=== PATIENT | female | born 1960 | race Caucasian/White ===

== ENCOUNTER 2021-03-25 10:11 | Outpatient (CLI) | payer OTHER, SELFPAY ==
--- NOTE | ~2021-03-25 | MM_ITS ---
EXAMINATION: MM screening lilian BI w silverio HISTORY: Screening mammogram TECHNIQUE: Craniocaudal and mediolateral oblique 3-D tomosynthesis images were obtained and synthetic 2-D images were generated. CAD analysis was submitted and interpreted. COMPARISON: 10/25/2018 diagnostic right digital mammogram and limited right breast ultrasound 03/22/2018 bilateral diagnostic mammogram and limited right breast ultrasound 08/2013 bilateral digital screening mammogram BREAST PARENCHYMAL COMPOSITION: There are scattered areas of fibroglandular density. FINDINGS: There is focal asymmetry in the central left breast; diagnostic left mammogram is recommend ed, with ultrasound if required. Otherwise there is no evidence of suspicious mass, calcification, or architectural distortion to sugg est malignancy in either breast. There has been no other suspicious interval change. IMPRESSION: 1. Focal asymmetry in central left breast 2. Diagnostic left mammogram is recommended, with ultrasound if required BI-RADS Category 0: Incomplete: Needs additional imaging evaluation. Reviewed, dictated and finalized at location A.
== END 2021-03-25 10:12 | disposition home or self-care (01) ==
PROVIDERS: PCP Family Medicine; Visit Provider Family Medicine
DX: Z12.31 Encounter for screening mammogram for malignant neoplasm of breast (principal)
CPT/HCPCS: 77063; 77067

== ENCOUNTER 2021-04-15 08:57 | Outpatient (CLI) | payer OTHER, SELFPAY ==
--- NOTE | ~2021-04-15 | DEXA_ITS ---
Bone Density Report Name: Vi Martinez Age: 60 Sex: Female Ethnicity: White Date of : 1960 Indication: postmenopausal; parental hip fracture; height loss; asthma or emphysema; Referring Provider: ATIF BATES Study: Bone densitometry was performed. Exam Date: April 15, 2021 Accession number: [id number] Bone Density: Region BMD T-score Z-score Classification AP Spine (L1-L4) 0.979 -0.6 0.8 Normal Femoral Neck (Left) 0.814 -0.3 1.0 Normal Total Hip (Left) 1.022 0.7 1.6 Normal Total Hip Bilateral Avg 0.986 0.4 1.3 Normal Femoral Neck (Right) 0.824 -0.2 1.1 Normal Total Hip (Right) 0.948 0.1 1.0 Normal World Health Organization criteria for BMD impression classify patients as: Normal (T-score at or above -1.0), Osteopenia (T-score between -1.0 and -2.5), or Osteoporosis (T-score at or below -2.5). 10-year Fracture Risk: FRAX not reported because: All T-scores for Spine Total, Hip Total, Femoral Neck at or above -1.0 Clinical Information Provided by Patient: Parent has had a hip fracture Has used the following medications: Calcium Has the following medical conditions: Asthma or Emphysema Patient maximum height was 64 Menopause Age: 46 Drinks caffeinated beverages Onset of menses at age 13 Number of children 2 Impression: The patient has normal bone mass. The patient has risk factors, including: parental hip fracture. Discussion: BONE DENSITY IS ABOVE THE MINIMUM DESIRABLE LEVEL AT ALL SKELETAL SITES TESTED. This patient?s bone mineral density is above the minimum desirable level (T-score -1.0 or better) at all sites measured. The patient should follow a healthful lifestyle (good nutrition with adequate calcium and vitamin D, and appropriate weight-bearing exercise). Follow-Up: Consider repeating this study in 5 years or sooner if there is some new clinical indication. Reported by: HEMANTH on 04/15/2021 9:17:00 AM. Reviewed, dictated and finalized at location APeri PHILLIPS
== END 2021-04-15 08:58 | disposition home or self-care (01) ==
LOC: ANHIMG 09:03
PROVIDERS: PCP Family Medicine; Visit Provider Family Medicine
DX: Z78.0 Asymptomatic menopausal state (principal)
CPT/HCPCS: 77080

== ENCOUNTER 2021-05-25 12:58 | Outpatient (CLI) | payer OTHER, SELFPAY ==
--- NOTE | ~2021-05-25 | MMUS_ITS ---
EXAMINATION: MM diagnostic lilian LT w silverio, US breast LT limited HISTORY: Follow-up left breast mass TECHNIQUE: Additional 3-D tomosynthesis images of the left breast were performed and synthetic 2-D im ages were generated. CAD analysis was submitted and interpreted. High resolution Limited left breast ultrasound was performed. COMPARISON: Comparison to multiple prior studies sequentially, with oldest reviewed study dated 07/16. BREAST PARENCHYMAL COMPOSITION: Breast composed of scattered areas of fibroglandular density. FINDINGS: MAMMOGRAPHIC FINDINGS: The left breast is stable without evidence for malignancy. Asymmetry mid lateral aspect of the left b reast is unchanged dating back to 2011. No new masses, calcifications or architectural distortion to suggest malignancy. ULTRASOUND: Limited left breast ultrasound: At 2:00 near the nipple there is a 5 mm cyst. No suspicious sonograph ic abnormalities to suggest malignancy. IMPRESSION: 1. No evidence for malignancy in the left breast. Benign findings. 2. Routine yearly screening mammogram and regular clinical breast examination are recommended. BI-RADS Category 2: Benign finding(s). Reviewed, dictated and finalized at location A. IMPRESSION: 1. No evidence for malignancy in the left breast. Benign findings. 2. Routine yearly screening mammogram and regular clinical breast examination a re recommended. BI-RADS Category 2: Benign finding(s).
== END 2021-05-25 12:59 | disposition home or self-care (01) ==
LOC: ANHIMG 12:59
PROVIDERS: PCP Family Medicine; Visit Provider Family Medicine
DX: R92.8 Other abnormal and inconclusive findings on diagnostic imaging of breast (principal)
CPT/HCPCS: 76642; 77061; 77065; G0279

== ENCOUNTER → 2021-06-08 17:19 | Outpatient (CLI) | payer OTHER, SELFPAY ==
--- NOTE | ~2021-06-08 | XR_ITS ---
XR knee LT min 4V DATE: 06/08/2021 17:34 INDICATION: Left knee pain TECHNIQUE: [place], lateral and standing AP and PA views COMPARISON: None FINDINGS: There is prominent loss of height of medial compartment, with mild periarticular spurring. There is mild periarticular spurring at the patellofemoral compartment. No fracture or dislocation, radiopaque intra-articular loose body or chondrocalcinosis is evident. Mi ld knee joint effusion is suggested. There is prominent enthesopathy of the anterior tibial tuberosity at the patellar tendon insertion. IMPRESSION: Osteoarthritis of medial and patellofemoral compartments Suggestion of mild joint effusion Reviewed, dictated and finalized at location A.
== END ==
PROVIDERS: PCP Physician Assistant Medical; Visit Provider Physician Assistant Medical
DX: M17.12 Unilateral primary osteoarthritis, left knee (principal)
CPT/HCPCS: 73564

== ENCOUNTER 2022-07-21 07:51 | Outpatient (CLI) | payer OTHER, SELFPAY ==
--- NOTE | ~2022-07-21 | MM_ITS ---
EXAMINATION: MM screening [facility] BI w silverio HISTORY: Screening mammogram TECHNIQUE: Craniocaudal and mediolateral oblique 3-D tomosynthesis images were obtained and synthetic 2-D images were generated. CAD analysis was submitted and interpreted. COMPARISON: 05/25/2021, 03/25/2021, 10/25/2018, 03/22/2018 BREAST PARENCHYMAL COMPOSITION: The breasts are heterogeneously dense, which may obscure small masses . FINDINGS: No suspicious mass, calcification, or architectural distortion are identified in either [place] ast to suggest malignancy. There has been no suspicious interval change. IMPRESSION: 1. No mammographic evidence of malignancy. 2. Recommend routine screening mammography in one year. BI-RADS Category 1: Negative Reviewed, dictated and finalized at location A.
== END 2022-07-21 07:52 | disposition home or self-care (01) ==
LOC: ANHIMG 07:53
PROVIDERS: PCP Family Medicine; Visit Provider Family Medicine
DX: Z12.31 Encounter for screening mammogram for malignant neoplasm of breast (principal)
CPT/HCPCS: 77063; 77067

== ENCOUNTER 2022-09-19 08:27 | Outpatient (CLI) | payer OTHER, SELFPAY ==
--- NOTE | ~2022-09-19 | XR_ITS ---
XR hip RT 2V w AP pelvis DATE: 09/19/2022 08:48 INDICATION: Right hip pain for 2 months TECHNIQUE: AP pelvis. AP and lateral views of right hip COMPARISON: None FINDINGS: No pelvic fracture or bone destruction. Normal alignment at the pubic symphysis and sacroil iac joints. No fracture or dislocation, avascular necrosis or bone destruction of the right hip. IMPRESSION: Negative Reviewed, dictated and finalized at location B. E SPECIALIST IMPRESSION: Negative
== END 2022-09-19 08:28 | disposition home or self-care (01) ==
PROVIDERS: PCP Family Medicine; Visit Provider Family Medicine
DX: M16.11 Unilateral primary osteoarthritis, right hip (principal); M54.16 Radiculopathy, lumbar region
CPT/HCPCS: 73502

== ENCOUNTER 2022-09-22 10:36 | Outpatient (CLI) | payer OTHER, SELFPAY ==
--- NOTE | 2022-09-26 16:23 | WPDHOLTEREM ---
Holter/Event Monitor Holter/Event Monitor Date of procedure: 09/22/22 Holter/Event Procedure: 48 Hr Holter Monitor Indications: Palpitations Conclusion: 1. 48 hour holter monitor on 09/22/22. 2. Predominant rhythm is sinus rhythm. HR range 50-120 bpm; average HR 64 bpm. 3. There are 603 premature supraventricular complexes and 2 supraventricular couplets. There are 2 episodes of atrial tachycardia, fastest at 154 bpm and longest lasting 10 beats. 4. There is 1 premature ventricular complex. No ventricular tachycardia. 5. No sinoatrial or atrioventricular blocks. No significant pauses greater than 2 seconds. 6. No symptoms available for correlation.
== END 2022-09-22 10:37 | disposition home or self-care (01) ==
PROVIDERS: PCP Family Medicine; Visit Provider Family Medicine
DX: R00.2 Palpitations (principal)
CPT/HCPCS: 93225; 93226

== ENCOUNTER → 2022-10-12 09:55 | Outpatient (CLI) | payer OTHER, SELFPAY ==
--- NOTE | ~2022-10-12 | XR_ITS ---
EXAMINATION:XR cervical spine min 6V DATE: 10/12/2022 10:25 INDICATION: Neck pain TECHNIQUE: AP, lateral in neutral, extension, and flexion, lateral swimmers and odontoid views of the cervical spine are provided. COMPARISON: None FINDINGS: There are 2 mm of anterolisthesis of C3 on C4, C4 on C5, and C5 on C6. There is no hypermob ility with flexion or extension. The vertebral body heights are maintained. The odontoid is intact. N o fracture is identified. The vertebral body heights are maintained. There is mild loss of interverte bral disc space height from C4-5 through C7-T1. There is multilevel mild facet and uncovertebral join t osteoarthritis. Prevertebral soft tissues are normal. A calcification right submandibular region is likely within a salivary gland. IMPRESSION: 1. Moderate cervical spondylosis without acute findings. Reviewed, dictated and finalized at location L. ER HELPER
== END ==
PROVIDERS: PCP Family Medicine; Visit Provider Family Medicine
DX: M47.812 Spondylosis without myelopathy or radiculopathy, cervical region (principal); M25.511 Pain in right shoulder; M25.512 Pain in left shoulder
CPT/HCPCS: 72052

== ENCOUNTER → 2022-10-18 09:36 | Outpatient (CLI) | payer OTHER, SELFPAY ==
--- NOTE | ~2022-10-18 | MR_ITS ---
MRI of the cervical spine Clinical History: Disc herniation Technique: Axial T2-weighted and gradient images, and sagittal T1-weighted, T2-weighted, and STIR janelle ges were acquired. Findings: There is no fracture or subluxation the cervical spine. Vertebral bodies maintain normal he ight and alignment. No bone marrow signal abnormality seen. No significant disc bulge or herniation seen at any cervical level. No spinal canal stenosis, cord co mpression, or neural foraminal narrowing seen in the cervical spine. No epidural mass or collection. No abnormal signal in the spinal cord. Paravertebral soft tissues are unremarkable. Impression: Unremarkable exam. Reviewed, dictated and finalized at location . LE CHECKER Impression: Unremarkable exam.
== END ==
PROVIDERS: PCP Family Medicine; Visit Provider Family Medicine
DX: M50.20 Other cervical disc displacement, unspecified cervical region (principal)
CPT/HCPCS: 72141

== ENCOUNTER 2023-05-18 08:15 | Outpatient (CLI) | payer OTHER, SELFPAY ==
[2023-05-18 14:33] LABS: Alanine Aminotransferase 22 U/L (6-35); Alkaline Phosphatase 86 U/L (38-126); Anion Gap 6 mmol/L (8-16); Aspartate Amino Transferase 44 U/L (14-36); Bilirubin,Total 0.8 mg/dL (0.2-1.3); Blood Urea Nitrogen 21 mg/dL (7-17); Calcium 9.1 mg/dL (8.4-10.2); Carbon Dioxide 29 mmol/L (22-30); Chloride 104 mmol/L (98-107); Cholesterol 186 mg/dL (0-200); Estimated Glomerular Filt Rate 56; Glucose 81 mg/dL (65-110); HDL Direct 61 mg/dL; Sodium 139 mmol/L (137-145); Triglycerides 133 mg/dL (<150)
[2023-05-18 14:44] LABS: LDL Cholesterol Direct 80 mg/dL
[2023-05-18 15:00] LABS: MALB Creatinine Ratio 26.8 mg/g (0-30); Microalbumin Urine Random 41.5 mg/L (0-16.7)
[2023-05-18 15:57] LABS: Hemoglobin A1C 6.2 % (<5.7)
== END 2023-05-18 08:16 | disposition home or self-care (01) ==
LOC: ANHGOSHLAB 08:16
PROVIDERS: PCP Family Medicine; Visit Provider Family Medicine
DX: E03.9 Hypothyroidism, unspecified (principal); E11.9 Type 2 diabetes mellitus without complications; M35.3 Polymyalgia rheumatica
CPT/HCPCS: 36415; 80053; 80061; 82043; 83036; 84443

== ENCOUNTER 2023-11-29 08:24 | Outpatient (CLI) | payer OTHER, SELFPAY ==
[2023-11-29 19:40] LABS: Alanine Aminotransferase 22 U/L (6-35); Albumin Level 3.9 g/dL (3.5-5.1); Alkaline Phosphatase 90 U/L (38-126); Anion Gap 4 mmol/L (8-16); Aspartate Amino Transferase 46 U/L (14-36); Bilirubin,Total 0.9 mg/dL (0.2-1.3); Blood Urea Nitrogen 25 mg/dL (7-17); Calcium 9.6 mg/dL (8.4-10.2); Carbon Dioxide 31 mmol/L (22-30); Chloride 104 mmol/L (98-107); Cholesterol 187 mg/dL (0-200); Estimated Glomerular Filt Rate > 60; Glucose 93 mg/dL (65-110); HDL Direct 53 mg/dL; LDL Cholesterol Direct 89 mg/dL; Potassium 4.4 mmol/L (3.4-5.0); Sodium 139 mmol/L (137-145); Triglycerides 171 mg/dL (<150)
[2023-11-29 21:22] LABS: Hemoglobin A1C 6.2 % (<5.7)
== END 2023-11-29 08:25 | disposition home or self-care (01) ==
LOC: ANHGOSHLAB 08:25
PROVIDERS: PCP Family Medicine; Visit Provider Family Medicine
DX: E78.5 Hyperlipidemia, unspecified (principal); M35.3 Polymyalgia rheumatica; R73.03 Prediabetes
CPT/HCPCS: 36415; 80053; 80061; 83036; 84443

== ENCOUNTER 2024-05-23 09:02 | Outpatient (CLI) | payer OTHER, SELFPAY ==
--- NOTE | ~2024-05-23 | MM_ITS ---
EXAMINATION: MM screening lilian BI w silverio HISTORY: Screening TECHNIQUE: Craniocaudal and mediolateral oblique 3-D tomosynthesis images were obtained and synthetic 2-D images were generated. CAD analysis was submitted and interpreted. COMPARISON: Comparison to multiple prior studies sequentially, with oldest reviewed study dated 05/2018. BREAST PARENCHYMAL COMPOSITION: Not dense: There are scattered areas of fibroglandular density. FINDINGS: There is no evidence of suspicious mass, calcification, or architectural distortion to sugg est malignancy in either breast. There has been no suspicious interval change. IMPRESSION: 1. No mammographic evidence of malignancy. 2. Recommend routine screening mammography in one year. BI-RADS Category 1: Negative Reviewed, dictated and finalized at location B.
== END 2024-05-23 09:03 | disposition home or self-care (01) ==
LOC: ANHIMG 09:05
PROVIDERS: PCP Family Medicine; Visit Provider Family Medicine
DX: Z12.31 Encounter for screening mammogram for malignant neoplasm of breast (principal)
CPT/HCPCS: 77063; 77067

== ENCOUNTER 2024-06-05 08:20 | Outpatient (CLI) | payer OTHER, SELFPAY ==
[2024-06-05 14:28] LABS: Hemoglobin A1C 6.2 % (<5.7)
[2024-06-05 14:32] LABS: Alanine Aminotransferase 18 U/L (6-35); Albumin Level 4.1 g/dL (3.5-5.1); Alkaline Phosphatase 99 U/L (38-126); Anion Gap 7 mmol/L (4-12); Aspartate Amino Transferase 83 U/L (14-36); Bilirubin,Total 0.7 mg/dL (0.2-1.3); Blood Urea Nitrogen 22 mg/dL (7-17); Calcium 9.1 mg/dL (8.4-10.2); Carbon Dioxide 28 mmol/L (22-30); Chloride 103 mmol/L (98-107); Estimated Glomerular Filt Rate > 60; Glucose 89 mg/dL (65-110); Potassium 4.2 mmol/L (3.4-5.0); Sodium 138 mmol/L (137-145)
== END 2024-06-05 08:21 | disposition home or self-care (01) ==
LOC: ANHGOSHLAB 08:21
PROVIDERS: PCP Family Medicine; Visit Provider Family Medicine
DX: E78.5 Hyperlipidemia, unspecified (principal); E07.9 Disorder of thyroid, unspecified; M35.3 Polymyalgia rheumatica; R73.03 Prediabetes
CPT/HCPCS: 36415; 80053; 83036; 84443

== ENCOUNTER 2024-06-12 09:33 | Outpatient (CLI) | payer OTHER, SELFPAY ==
[2024-06-12 13:06] LABS: Alanine Aminotransferase 16 U/L (6-35); Albumin Level 4.2 g/dL (3.5-5.1); Alkaline Phosphatase 98 U/L (38-126); Aspartate Amino Transferase 35 U/L (14-36); Bilirubin,Total 0.6 mg/dL (0.2-1.3)
[2024-06-12 13:15] LABS: Hepatitis B Surface Antigen Negative (Negative)
[2024-06-12 13:21] LABS: HAV RESULT Negative (Negative); Hepatitis B Core IgM Result Negative (Negative)
[2024-06-12 13:33] LABS: Hepatitis C Virus Antibody Negative (Negative)
== END 2024-06-12 09:34 | disposition home or self-care (01) ==
LOC: ANHGOSHLAB 09:34
PROVIDERS: PCP Family Medicine; Visit Provider Family Medicine
DX: R74.01 Elevation of levels of liver transaminase levels (principal)
CPT/HCPCS: 36415; 80074; 80076

== ENCOUNTER 2024-07-16 12:06 | Emergency (ER) | payer OTHER, SELFPAY ==
--- NOTE | ~2024-07-16 | XR_ITS ---
Clinical Indication: Shortness of breath PA and lateral views of the chest: Comparison: 12/18/2007 Findings: The lungs are clear, without evidence of focal consolidation or pleural effusion. Cardiome diastinal silhouette is within normal limits. Bones and soft tissues are unremarkable. Impression: Normal chest. Reviewed, dictated and finalized at location . Impression: Normal chest.
[2024-07-16 12:17] VITALS: BP 124/67; PULSE 73; RESP 16; TEMP 36.8; O2SAT 97
--- NOTE | 2024-07-16 12:28 | ED.URI ---
HPI - URI/Sore Throat General Chief Complaint: Upper Respiratory Infection Stated Complaint: SOB Time Seen by Provider: 07/16/24 12:22 Source: patient and RN notes reviewed Mode of arrival: ambulatory Limitations: no limitations History of Present Illness HPI Narrative: Patient presents today stating she had the flu 2 weeks ago and that most for symptoms had improved except for a lingering cough and shortness of breath. States shortness of breath has worsened today. She also developed some fatigue when she woke up this morning. History of asthma. States she uses her Wixela inhaler p.r.n. and has been using it more frequently since she has been ill. She has also been using Mucinex with some relief. She does not have a rescue inhaler. Related Data Allergies Allergy/AdvReac Type Severity Reaction Status Date / Time Penicillins Allergy Intermediate hives Verified 07/16/24 12:21 Sulfa (Sulfonamide Allergy Intermediate hives Verified 07/16/24 12:21 Antibiotics) Review of Systems Review of Systems: CONSTITUTIONAL: Denies body aches, fever, chills, or sweats.+ fatigue EYES: Denies visual changes, redness, or discharge. ENT: Denies rhinorrhea, congestion, sore throat, or otalgia. CARDIOVASCULAR: Denies chest pain, palpitations, or edema. RESPIRATORY: + cough, shortness of breath GASTROINTESTINAL: Denies abdominal pain, nausea, vomiting, or diarrhea. GENITOURINARY: Denies dysuria or hematuria. SKIN: Denies rash, itching, or wounds. MUSCULOSKELETAL: Denies back pain, joint pain, or myalgia. NEUROLOGIC: Denies headache, numbness, tingling, or weakness. PSYCH: Denies depression or anxiety. [facility] Past Medical History Medical History (Updated 07/16/24 @ 13:01 by Caterina Marc, KOLE, BC) Arthritis of right hip COVID-19 History of chicken pox History of measles History of mumps Obesity (BMI 30.0-34.9) Subjective tinnitus of both ears Tinnitus Unspecified asthma, uncomplicated Surgical History Surgical History History of tonsillectomy (~1970) Family History Family History Father , age 76 Diabetes mellitus Carcinoma of colon Heart disease Cancer Hypertension Thyroid disorder Mother No problems noted. Sibling Kidney disease Sibling No problems noted. Sibling Heart disease Grandparent , age 82 Arthritis Alcoholism Family history of cardiovascular disease Grandparent , age 68 Leukemia Grandparent , age 91 No problems noted. Grandparent , age 71 Heart disease Cerebrovascular accident Cancer Daughter Gestational diabetes Son No problems noted. Other Depression Other Malignant neoplasm of prostate Social History Social History Smoking status: Never smoker Alcohol intake: former Substance use type: does not use Lack of Transportation: No Lack of Food: Never True Current Housing: I Have Housing Concerned About Future Housing: No Difficulty Paying Gas/Electric Bills: No Difficulty Paying for Meds: No Currently Unemployed: No Education: Bachelor's Degree Difficulty w/ Childcare or Family Care: No Living arrangements: with family Additional occupation/education comments: [employer] Comments At time of signature, I have reviewed and agree with nursing past medical, surgical, social and family history unless otherwise noted. Please see nursing chart for further information. There is no relevant family history pertinent to the presenting complaint Exam Narrative: GENERAL: Well-appearing, well-nourished, and in no acute distress. HEAD: Normocephalic, atraumatic. EYES: EOMI. No redness or drainage. Conjunctivae normal. ENT: Mucous membranes pink and moist. Nares cl
== END 2024-07-16 13:10 | disposition home or self-care (01) ==
PROVIDERS: Emergency Provider Nurse Practitioner; PCP Family Medicine
DX: J22 Unspecified acute lower respiratory infection (principal); M16.11 Unilateral primary osteoarthritis, right hip; E66.9 Obesity, unspecified; Z68.33 Body mass index [BMI] 33.0-33.9, adult; Z86.16 Personal history of COVID-19
CPT/HCPCS: 71046; 99213; G0463

== ENCOUNTER 2025-01-18 18:29 | Emergency (ER) | payer OTHER, SELFPAY ==
[2025-01-18] VITALS (16 sets, daily range): BP systolic 119–126; BP diastolic 46–70; PULSE 56–66; RESP 12–21; TEMP 36.7; O2SAT 96–98
--- NOTE | ~2025-01-18 | CT_ITS ---
Clinical Indication: Chest pain CT Scan of the Chest with Contrast: Technique: Contiguous sections were acquired throughout the chest after intravenous administration of 100 cc of Omnipaque 350. Dose reduction technique was used on this scan by utilizing automated expos ure control and iterative reconstruction technique. The dose-length product (DLP) was 442.33 mGy-cm. Findings: There is no evidence of any significant mediastinal, hilar or axillary lymphadenopathy. There is no f illing defect in the pulmonary arterial tree to suggest pulmonary embolus. There is no evidence of ao rtic dissection or aneurysm. There is no evidence of pleural or pericardial effusion. There mild bibasilar dependent atelectatic changes. 7 mm left basilar pulmonary nodule present (axial image 79). Images through the upper abdomen reveal no abnormalities. Impression: No evidence of pulmonary embolus, aortic dissection, or aortic aneurysm. 7 mm left basilar pulmonary nodule. According to Fleischner Society criteria, for a low-risk patient, follow-up CT scan in 6-12 months recommended, then consider additional 18-[address] For a high-ri sk patient, follow-up CT scans at both 6-12 months and 18-24 months are recommended. Reviewed, dictated and finalized at [facility]. Impression: No evidence of pulmonary embolus, aortic dissection, or aortic aneurysm. 7 mm left basilar pulmonary nodule. According to Fleischner Society criteria, f or a low-risk patient, follow-up CT scan in 6-12 months recommended, then consi good additional 18-[address] For a high-risk patient, follow-up CT scans at [facility] 6-12 months and 18-24 months are recommended.
--- NOTE | ~2025-01-18 | XR_ITS ---
CHEST RADIOGRAPH, PA AND LATERAL CLINICAL HISTORY: cp . COMPARISON: 07/16/2024 TECHNIQUE: PA and lateral views of the chest. FINDINGS The cardiomediastinal silhouette is unremarkable. The lungs are clear. Visualized osseous structures and soft tissues are unremarkable. IMPRESSION: No focal infiltrate or effusion. Reviewed, dictated and finalized at location A.
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
--- OUTSIDE RECORDS SUMMARY | 2025-01-18 18:32 | XMS_ITS | Clinical Summary ---
Author Organization [facility] Address [address] [place] [address] Phone Care Team Providers Care Rewinder Operator Name Role Phone Unavailable Unavailable Unavailable Reason for Visit and Chief Complaint [Patient Encounter] Problems Includes: Problems addressed during this encounter and other active Problems All Visits Onset Date Resolved Date Provider Condition S tatus Generalized Anxiety Disorder 03/30/2014 Active Last Documented On 3 5:47PM ; [facility] Major Depression, Recurrent 03/30/2014 Active Last Documented On 3 5:47PM ; [facility] Adhd, 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 Last Documented On 3 5:47PM ; [facility] Persistent Insomnia 03/18/2014 Activ e Last Documented On 3 5:47PM ; [facility] Plan of Treatment No Plan of Treatment Recorded Assessments Includes: Assessments from this encounter No Assessments Recorded Medical Equipment - Implanted Devices Includes: Current Devices No Medical Equipment Recorded Medications Includes: Medications discussed during this encounter and other current Medications Discontinued / Stopped on this date SAIRA PRABHAKAR MD on 07/26/2015 Ambien 10 MG OR TABS Provider: SAIRA PRABHAKAR MD Diagnosis: Insomnia, unspec ified Last Documented On 02/10/2023 5:37PM By Anne Prabhakar MD ; [facility] Strattera 40 MG OR CAPS Provider: MC PRABHAKAR MD Diagnosis: ATTN DEFIC NONHY PERACT Last Documented On 02/10/2023 5:37PM By Anne Prabhakar MD ; [facility] traZODone HCl 50 MG OR TABS Provider: SAIRA PRABHAKAR MD Diagnosis: PERSISTENT INSOM JOCELYN Last Documented On 02/10/2023 5:37PM By Anne Prabhakar MD ; [facility] Current Medications (continue as prescribed) Rexulti 1 MG OR TABS 08/28/2016 Provider: SAIRA PRABHAKAR MD Diagnosis: Major depressive disorder, recurrent, unspecified One tablet daily -- has 30 d ay free voucher given 08/28/16 Last Documented On 02/10/2023 5:37PM By Anne Prabhakar MD ; [facility] Rexulti 1 MG OR TABS 08/28/2016 Provider: SAIRA PRABHAKAR MD Diagnosis: Major depressive disorder, recurrent, unspecified One tablet daily -- given 2 months samples on 08/28/16 Last Documented On 02/10/2023 5:37PM By Anne Prabhakar MD ; [facility] FLUoxetine HCl 40 MG OR CAPS 08/28/2016 Provider: SAIRA PRABHAKAR MD Diagnosis: Major depressive disorder, recurrent, unspecified 1 capsule daily Last Documented On 02/10/2023 5:37PM By Anne Prabhakar MD ; [facility] busPIRone HCl 10 MG OR TABS 08/28/2016 Provider: SAIRA PRABHAKAR MD Diagnosis: Generalized anxi ety disorder One tablet twice a day Last Documented On 02/10/2023 5:37PM By Anne Prabhakar MD ; [facility] Rexulti 1 MG OR TABS 07/03/2016 Provider: SAIRA PRABHAKAR MD Diagnosis: Major depressive disorder, recurrent, unspecified One tablet daily Last Documented On 02/10/2023 5:37PM By Anne Prabhakar MD ; [facility] Levothyroxine Sodium 75 MCG OR TABS 03/30/2014 Provi good: Diagnosis: one tablet daily Last Documented On 02/10/2023 5:37PM By LUIZ RUDD ; [facility] Medications Administered Includes: Administered Medications from this encounter No Administered Medications Recorded Vital Signs Includes: Vital Signs from this encounter Vital Name 08/09/2015 08:57A Blood Pressure Sitting (mmHg) 128/78 BP Cuff Size Regular Pulse Rate-Sitting (bpm) 80 Pulse Rhythm Regular Height (in) 63 Weight (lb) 190 Body Mass Index (kg/m2) 33.7 Body Surface Area (m2) 1.9 Last Documented: On 02/10/2023 5:54PM ; [facility] Results Includes: Results discussed during this encounter No Results Recorded For Specified Dates History of Present Illness Includes: History of Present Illness from this encounter No History of Present Illness Recorded Social History No Social History Recorded - Smoking Status Unknown Medical History Includes: Medical History addressed during this encounter No Medical History Recorded Family History Includes: Family History addressed during this encounter No Family History Recorded Review of Systems Includes: Review of Systems from this encounter No Review of Systems Recorded Mental Status Includes: Mental Status from this encounter No Mental Status Recorded Functional Status Includes: Functional Status from this encounter No Functional Status Recorded Physical Exam Includes: Physical Exam from this encounter No Physical Exam Recorded Allergies Includes: Active Allergies Substance Type Reaction Onset Date Resolved Date Statu s Zolpidem Tartrate Allergy Nausea, Vomiti ng, Diarrhea / Diarrheal disorder, flu sx and nightmares 08/09/2015 Active Last Documented On 02/10/2023 5:39PM ; [facility] Note: Imported from external source. traZODone HCl Allergy chest pounding a nd severe dizziness 08/09/2015 Active Last Documented On 02/10/2023 5:39PM ; [facility] Note: Imported from external source. Sulfa Antibiotics Allergy 03/30/2014 A ctive Last Documented On 02/10/2023 5:39PM ; [facility] Note: Imported from external source. Strattera Allergy pounding chest 08/09/2015 Acti ve Last Documented On 02/10/2023 5:39PM ; [facility] Note: Imported from external source. Penicillin V Potassium Allergy 03/30/2014 Active Last Documented On 02/10/2023 5:39PM ; [facility] Note: Imported from external source. Focalin Allergy fast heart rate 05/31/2015 Act arnaud Last Documented On 02/10/2023 5:39PM ; [facility] Note: Imported from external source. Encounters Encounter Provider Location Date Check-In Time Check-Out Time Diagnosis [Patient Encounter] 08/09/2015 12:00AM 11:59PM Clinical Notes Includes: Clinical Notes from this encounter No Clinical Notes Recorded
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
--- OUTSIDE RECORDS SUMMARY | 2025-01-18 18:32 | XMS_ITS | Clinical Summary ---
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 Name Role Phone Unavailable Unavailable Unavailable Reason for Visit and Chief Complaint [Patient Encounter] Problems Includes: Problems addressed during this encounter and other active Problems All Visits Onset Date Resolved Date Provider Condition S tatus Generalized Anxiety Disorder 03/30/2014 Active Last Documented On 3 5:47PM ; [facility] Major Depression, Recurrent 03/30/2014 Active Last Documented On 3 5:47PM ; [facility] Adhd, 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 Last Documented On 3 5:47PM ; [facility] Persistent Insomnia 03/18/2014 Activ e Last Documented On 3 5:47PM ; [facility] Plan of Treatment No Plan of Treatment Recorded Assessments Includes: Assessments from this encounter No Assessments Recorded Medical Equipment - Implanted Devices Includes: Current Devices No Medical Equipment Recorded Medications Includes: Medications discussed during this encounter and other current Medications Discontinued / Stopped on this date SAIRA PRABHAKAR MD on 08/09/2015 Silenor 3 MG OR TABS Provider: SAIRA PRABHAKAR MD Diagnosis: Insomnia, unspec ified Last Documented On 02/10/2023 5:37PM By Anne Prabhakar MD ; [facility] Silenor 6 MG OR TABS Provider: SAIRA PRABHAKAR MD Diagnosis: Insomnia, unspec ified Last Documented On 02/10/2023 5:37PM By Anne Prabhaakr MD ; [facility] Current Medications (continue as prescribed) Rexulti 1 MG OR TABS 08/28/2016 Provider: SAIRA PRABHAKAR MD Diagnosis: Major depressive disorder, recurrent, unspecified One tablet daily -- has 30 d ay free voucher given 08/28/16 Last Documented On 02/10/2023 5:37PM By Anne Prabhakar MD ; [facility] Rexulti 1 MG OR TABS 08/28/2016 Provider: SAIRA PRABHAKAR MD Diagnosis: Major depressive disorder, recurrent, unspecified One tablet daily -- given 2 months samples on 08/28/16 Last Documented On 02/10/2023 5:37PM By Anne Prabhakar MD ; [facility] FLUoxetine HCl 40 MG OR CAPS 08/28/2016 Provider: SAIRA PRABHAKAR MD Diagnosis: Major depressive disorder, recurrent, unspecified 1 capsule daily Last Documented On 02/10/2023 5:37PM By Anne Prabhakar MD ; [facility] busPIRone HCl 10 MG OR TABS 08/28/2016 Provider: SAIRA PRABHAKAR MD Diagnosis: Generalized anxi ety disorder One tablet twice a day Last Documented On 02/10/2023 5:37PM By Anne Prabhakar MD ; [facility] Rexulti 1 MG OR TABS 07/03/2016 Provider: SAIRA PRABHAKAR MD Diagnosis: Major depressive disorder, recurrent, unspecified One tablet daily Last Documented On 02/10/2023 5:37PM By Anne Prabhakar MD ; [facility] Levothyroxine Sodium 75 MCG OR TABS 03/30/2014 Provi good: Diagnosis: one tablet daily Last Documented On 02/10/2023 5:37PM By LUIZ RUDD ; [facility] Medications Administered Includes: Administered Medications from this encounter No Administered Medications Recorded Vital Signs Includes: Vital Signs from this encounter Vital Name 10/04/2015 03:34P Blood Pressure Sitting (mmHg) 110/74 BP Cuff Size Large Pulse Rate-Sitting (bpm) 88 Pulse Rhythm Regular Height (in) 63 Weight (lb) 197 Body Mass Index (kg/m2) 34.9 Body Surface Area (m2) 1.9 Last Documented: On 02/10/2023 5:54PM ; [facility] Results Includes: Results discussed during this encounter [...] Last Documented On 02/10/2023 5:39PM ; [facility] Note: Imported from external source. traZODone HCl Allergy chest pounding a nd severe dizziness 08/09/2015 Active Last Documented On 02/10/2023 5:39PM ; [facility] Note: Imported from external source. Sulfa Antibiotics Allergy 03/30/2014 A ctive Last Documented On 02/10/2023 5:39PM ; [facility] Note: Imported from external source. Strattera Allergy pounding chest 08/09/2015 Acti ve Last Documented On 02/10/2023 5:39PM ; [facility] Note: Imported from external source. Penicillin V Potassium Allergy 03/30/2014 Active Last Documented On 02/10/2023 5:39PM ; [facility] Note: Imported from external source. Focalin Allergy fast heart rate 05/31/2015 Act arnaud Last Documented On 02/10/2023 5:39PM ; [facility] Note: Imported from external source. Encounters Encounter Provider Location Date Check-In Time Check-Out Time Diagnosis [Patient Encounter] 10/04/2015 12:00AM 11:59PM Clinical Notes Includes: Clinical Notes from this encounter No Clinical Notes Recorded
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
--- OUTSIDE RECORDS SUMMARY | 2025-01-18 18:32 | XMS_ITS | Clinical Summary ---
Author Organization [facility] Address [address] [place] [address] Phone Care Team Providers Care Manufacturing Job Titles Name Role Phone Unavailable Unavailable Unavailable Reason for Visit and Chief Complaint [Patient Encounter] Problems Includes: Problems addressed during this encounter and other active Problems All Visits Onset Date Resolved Date Provider Condition S tatus Generalized Anxiety Disorder 03/30/2014 Active Last Documented On 3 5:47PM ; [facility] Major Depression, Recurrent 03/30/2014 Active Last Documented On 3 5:47PM ; [facility] Adhd, 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 Last Documented On 3 5:47PM ; [facility] Persistent Insomnia 03/18/2014 Activ e Last Documented On 3 5:47PM ; [facility] Plan of Treatment No Plan of Treatment Recorded Assessments Includes: Assessments from this encounter No Assessments Recorded Medical Equipment - Implanted Devices Includes: Current Devices No Medical Equipment Recorded Medications Includes: Medications discussed during this encounter and other current Medications Discontinued / Stopped on this date SAIRA PRABHAKAR MD on 10/04/2015 Vyvanse 20 MG OR CAPS Provider: TATIANA PRABHAKAR MD Diagnosis: Attn-defct hyper activity disorder, predom inattentive type Last Documented On 02/10/2023 5:37PM By Anne Prabhakar MD ; [facility] Current Medications (continue as prescribed) Rexulti 1 MG OR TABS 08/28/2016 Provider: SAIRA PRABHAKAR MD Diagnosis: Major depressive disorder, recurrent, unspecified One tablet daily -- has 30 d ay free voucher given 08/28/16 Last Documented On 02/10/2023 5:37PM By Anne Prabhakar MD ; [facility] Rexulti 1 MG OR TABS 08/28/2016 Provider: SAIRA PRABHAKAR MD Diagnosis: Major depressive disorder, recurrent, unspecified One tablet daily -- given 2 months samples on 08/28/16 Last Documented On 02/10/2023 5:37PM By Anne Prabhakar MD ; [facility] FLUoxetine HCl 40 MG OR CAPS 08/28/2016 Provider: SAIRA PRABHAKAR MD Diagnosis: Major depressive disorder, recurrent, unspecified 1 capsule daily Last Documented On 02/10/2023 5:37PM By Anne Prabhakar MD ; [facility] busPIRone HCl 10 MG OR TABS 08/28/2016 Provider: SAIRA PRABHAKAR MD Diagnosis: Generalized anxi ety disorder One tablet twice a day Last Documented On 02/10/2023 5:37PM By Anne Prabhakar MD ; [facility] Rexulti 1 MG OR TABS 07/03/2016 Provider: SAIRA PRABHAKAR MD Diagnosis: Major depressive disorder, recurrent, unspecified One tablet daily Last Documented On 02/10/2023 5:37PM By Anne Prabhakar MD ; [facility] Levothyroxine Sodium 75 MCG OR TABS 03/30/2014 Provi good: Diagnosis: one tablet daily Last Documented On 02/10/2023 5:37PM By LUIZ RUDD ; [facility] Medications Administered Includes: Administered Medications from this encounter No Administered Medications Recorded Vital Signs Includes: Vital Signs from this encounter Vital Name 01/03/2016 03:03P Blood Pressure Sitting (mmHg) 110/72 BP Cuff Size Regular Pulse Rate-Sitting (bpm) 80 Pulse Rhythm Regular Height (in) 63 Weight (lb) 196 Body Mass Index (kg/m2) 34.7 Body Surface Area (m2) 1.9 Last Documented: On 02/10/2023 5:54PM ; [facility] Results Includes: Results discussed during this [...] Active Last Documented On 02/10/2023 5:39PM ; [facility] Note: Imported from external source. traZODone HCl Allergy chest pounding a nd severe dizziness 08/09/2015 Active Last Documented On 02/10/2023 5:39PM ; [facility] Note: Imported from external source. Sulfa Antibiotics Allergy 03/30/2014 A ctive Last Documented On 02/10/2023 5:39PM ; [facility] Note: Imported from external source. Strattera Allergy pounding chest 08/09/2015 Acti ve Last Documented On 02/10/2023 5:39PM ; [facility] Note: Imported from external source. Penicillin V Potassium Allergy 03/30/2014 Active Last Documented On 02/10/2023 5:39PM ; [facility] Note: Imported from external source. Focalin Allergy fast heart rate 05/31/2015 Act arnaud Last Documented On 02/10/2023 5:39PM ; [facility] Note: Imported from external source. Encounters Encounter Provider Location Date Check-In Time Check-Out Time Diagnosis [Patient Encounter] 01/03/2016 12:00AM 11:59PM Clinical Notes Includes: Clinical Notes from this encounter No Clinical Notes Recorded
--- OUTSIDE RECORDS SUMMARY | 2025-01-18 18:32 | XMS_ITS ---
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 I reviewed the risks, benefits and side effects of patient's medications Last Documented On 6 10:37AM ; [facility] Discussed calming techniques such as breathing exercises/meditation and other relaxation techniques Last Documented On 6 10:37AM ; [facility] Counseling for nutrition/guilherme ght management provided Last Documented On 6 1:41PM ; [facility] Patient education about medi cation --- I educated patient on medication(s) and diagnosis. I reviewed the risks, benefits and side effects of patient's medications Last Documented On 6 1:26PM ; [facility] Discussed calming techniques such as breathing exercises/meditation and other relaxation techniques Last Documented On 6 1:26PM ; [facility] Counseling for nutrition/guilherme ght management provided -- pt will start riding her indoor bike 10 min a day at least Last Documented On 6 2:13PM ; [facility] Patient education about medi cation --- I educated patient on medication(s) and diagnosis. I reviewed the risks, benefits and side effects of patient's medications Last Documented On 6 2:51PM ; [facility] Discussed calming techniques such as breathing exercises/meditation and other relaxation techniques Last Documented On 6 2:51PM ; [facility] Counseling for nutrition/guilherme ght management provided Last Documented On 6 5:17PM ; [facility] Patient education about medi cation --- I educated patient on medication(s) and diagnosis. I reviewed the risks, benefits and side effects of patient's medications Last Documented On 5 3:23PM ; [facility] Discussed calming techniques such as breathing exercises/meditation and other relaxation techniques Last Documented On 5 3:23PM ; [facility] Counseling for nutrition/guilherme ght management provided Last Documented On 5 9:39PM ; [facility] Patient education about medi cation --- I educated patient on medication(s) and diagnosis. I reviewed the risks, benefits and side effects of patient's medications Last Documented On 5 8:53AM ; [facility] Discussed calming techniques such as breathing exercises/meditation and other relaxation techniques Last Documented On 5 8:53AM ; [facility] Counseling for nutrition/guilherme ght management provided Last Documented On 5 7:00AM ; [facility] Discussed good sleep hygiene habits Last Documented On 5 7:00AM ; [facility] Patient education about medi cation --- I educated patient on medication(s) and diagnosis. I reviewed the risks, benefits and side effects of patient's medications Last Documented On 5 1:54PM ; [facility] Discussed calming techniques such as breathing exercises/meditation and other relaxation techniques Last Documented On 5 1:54PM ; [facility] Patient education about medi cation --- I educated patient on medication(s) and diagnosis. I reviewed the risks, benefits and side effects of patient's medications Last Documented On 5 9:49PM ; [facility] Discussed calming techniques such as breathing exercises/meditation and other relaxation techniques Last Documented On 5 3:35PM ; [facility] Counseling for nutrition/guilherme ght management provided Last Documented On 5 9:49PM ; [facility] Patient education about medi cation --- I educated patient on medication(s) and diagnosis. I reviewed the risks, benefits and side effects of patient's medications Last Documented On 5 6:33AM ; [facility] Discussed calming techniques such as breathing exercises/meditation and other relaxation techniques Last Documented On 5 3:59PM ; [facility] Counseling for nutrition/guilherme ght management provided Last Documented On 5 6:33AM ; [facility] Patient education about medi cation --- I educated patient on medication(s) and diagnosis. I reviewed the risks, benefits and side effects of patient's medications Last Documented On 4 6:47PM ; [facility] Discussed calming techniques such as breathing exercises/meditation and other relaxation techniques Last Documented On 4 10:47AM ; [facility] Counseling for nutrition/guilherme ght management provided Last Documented On 4 6:47PM ; [facility] Patient education about medi cation --- I educated patient on medication(s) and diagnosis. I reviewed the risks, benefits and side effects of patient's medications Last Documented On 4 11:50PM ; [facility] Discussed calming techniques such as breathing exercises/meditation and other relaxation techniques Last Documented On 4 9:14AM ; [facility] Patient education about medi cation --- I educated patient on medication(s) and diagnosis. I reviewed the risks, benefits and side effects of patient's medications.---continue prozac -- given by Dr. Adrian Last Documented On 4 11:04PM ; [facility] Discussed calming techniques such as breathing exercises/meditation and other relaxation techniques Last Documented On 4 3:07PM ; [facility] Counseling for nutrition/guilherme ght management provided Last Documented On 4 11:04PM ; [facility] Assessments Includes: Assessments for all patient encounters Findings Encounter Date ADHD, predominantly inattentive type GEN ERAL OFFICE VISIT with SAIRA PRABHAKAR MD 08/28/2016 Last Documented On 6 1:44PM ; [facility] Generalized anxiety disorder GENERAL OFF ICE VISIT with SAIRA PRABHAKAR MD 08/28/2016 Last Documented On 6 1:44PM ; [facility] Major depression, recurrent GENERAL OFFI CE VISIT with SAIRA PRABHAKAR MD 08/28/2016 Last Documented On 6 1:44PM ; [facility] Persistent insomnia GENERAL OFFICE VISIT with ME CAMDEN PRABHAKAR MD 08/28/2016 Last Documented On 6 1:44PM ; [facility] ADHD, predominantly inattentive type GEN ERAL OFFICE VISIT with SAIRA PRABHAKAR MD 07/03/2016 Last Documented On 6 7:30PM ; [facility] Generalized anxiety disorder GENERAL OFF ICE VISIT with SAIRA PRABHAKAR MD 07/03/2016 Last Documented On 6 7:30PM ; [facility] Major depression, recurrent GENERAL OFFI CE VISIT with SAIRA PRABHAKAR MD 07/03/2016 Last Documented On 6 7:30PM ; [facility] Persistent insomnia GENERAL OFFICE VISIT with ME CAMDEN PRABHAKAR MD 07/03/2016 Last Documented On 6 7:30PM ; [facility] ADHD, predominantly inattentive type GEN ERAL OFFICE VISIT with SAIRA PRABHAKAR MD 01/03/2016 Last Documented On 6 5:19PM ; [facility] Generalized anxiety disorder GENERAL OFF ICE VISIT with SAIRA PRABHAKAR MD 01/03/2016 Last Documented On 6 5:19PM ; [facility] Major depression, recurrent GENERAL OFFI CE VISIT with SAIRA PRABHAKAR MD 01/03/2016 Last Documented On 6 5:19PM ; [facility] Persistent insomnia GENERAL OFFICE VISIT with ME CAMDEN PRABHAKAR MD 01/03/2016 Last Documented On 6 5:19PM ; [facility] ADHD, predominantly inattentive type GEN ERAL OFFICE VISIT with SAIRA PRABHAKAR MD 10/04/2015 Last Documented On 5 11:08PM ; [facility] Generalized anxiety disorder GENERAL OFF ICE VISIT with SAIRA PRABHAKAR MD 10/04/2015 Last Documented On 5 11:08PM ; [facility] Major depression, recurrent GENERAL OFFI CE VISIT with SAIRA PRABHAKAR MD 10/04/2015 Last Documented On 5 11:08PM ; [facility] Persistent insomnia GENERAL OFFICE VISIT with ME CAMDEN PRABHAKAR MD 10/04/2015 Last Documented On 5 11:08PM ; [facility] ADHD, predominantly inattentive type GEN ERAL OFFICE VISIT with SAIRA PRABHAKAR MD 08/09/2015 Last Documented On 5 7:26AM ; [facility] Generalized anxiety disorder GENERAL OFF ICE VISIT with SAIRA PRABHAKAR MD 08/09/2015 Last Documented On 5 7:26AM ; [facility] Major depression, recurrent GENERAL OFFI CE VISIT with SAIRA PRABHAKAR MD 08/09/2015 Last Documented On 5 7:26AM ; [facility] Persistent insomnia GENERAL OFFICE VISIT with ME CAMDEN PRABHAKAR MD 08/09/2015 Last Documented On 5 7:26AM ; [facility] Persistent insomnia * PHONE CALL with SAIRA PRABHAKAR MD 07/26/2015 Last Documented On 5 2:19PM ; [facility] ADHD, predominantly inattentive type GEN ERAL OFFICE VISIT with SAIRA PRABHAKAR MD 05/31/2015 Last Documented On 5 10:27AM ; [facility] Generalized anxiety disorder GENERAL OFF ICE VISIT with SAIRA PRABHAKAR MD 05/31/2015 Last Documented On 5 10:27AM ; [facility] Major depression, recurrent GENERAL OFFI CE VISIT with SAIRA PRABHAKAR MD 05/31/2015 Last Documented On 5 10:27AM ; [facility] Persistent insomnia GENERAL OFFICE VISIT with ME CAMDEN PRABHAKAR MD 05/31/2015 Last Documented On 5 10:27AM ; [facility] ADHD, predominantly inattentive type GEN ERAL OFFICE VISIT with SAIRA PRABHAKAR MD 03/01/2015 Last Documented On 5 9:51PM ; [facility] Generalized anxiety disorder GENERAL OFF ICE VISIT with SAIRA PRABHAKAR MD 03/01/2015 Last Documented On 5 9:51PM ; [facility] Major depression, recurrent GENERAL OFFI CE VISIT with SAIRA PRABHAKAR MD 03/01/2015 Last Documented On 5 9:51PM ; [facility] Persistent insomnia GENERAL OFFICE VISIT with ME CAMDEN PRABHAKAR MD 03/01/2015 Last Documented On 5 9:51PM ; [facility] ADHD, predominantly inattentive type GEN ERAL OFFICE VISIT with SAIRA PRABHAKAR MD 02/01/2015 Last Documented On 5 6:36AM ; [facility] Generalized anxiety disorder GENERAL OFF ICE VISIT with SAIRA PRABHAKAR MD 02/01/2015 Last Documented On 5 6:36AM ; [facility] Major depression, recurrent GENERAL OFFI CE VISIT with SAIRA PRABHAKAR MD 02/01/2015 Last Documented On 5 6:36AM ; [facility] Persistent insomnia GENERAL OFFICE VISIT with ME CAMDEN PRABHAKAR MD 02/01/2015 Last Documented On 5 6:36AM ; [facility] ADHD, predominantly inattentive type GEN ERAL OFFICE VISIT with SAIRA PRABHAKAR MD 09/07/2014 Last Documented On 4 6:50PM ; [facility] Generalized anxiety disorder GENERAL OFF ICE VISIT with SAIRA PRABHAKAR MD 09/07/2014 Last Documented On 4 6:50PM ; [facility] Major depression, recurrent GENERAL OFFI CE VISIT with SAIRA PRABHAKAR MD 09/07/2014 Last Documented On 4 6:50PM ; [facility] Persistent insomnia GENERAL OFFICE VISIT with ME CAMDEN PRABHAKAR MD 09/07/2014 Last Documented On 4 6:50PM ; [facility] ADHD, predominantly inattentive type GEN ERAL OFFICE VISIT with SAIRA PRABHAKAR MD 05/05/2014 Last Documented On 4 11:50PM ; [facility] Generalized anxiety disorder GENERAL OFF ICE VISIT with SAIRA PRABHAKAR MD 05/05/2014 Last Documented On 4 11:50PM ; [facility] Major depression, recurrent GENERAL OFFI CE VISIT with SAIRA PRABHAKAR MD 05/05/2014 Last Documented On 4 11:50PM ; [facility] Persistent insomnia GENERAL OFFICE VISIT with ME CAMDEN PRABHAKAR MD 05/05/2014 Last Documented On 4 11:50PM ; [facility] ADHD, predominantly inattentive type NEW PATIENT VISIT with SAIRA PRABHAKAR MD 03/30/2014 Last Documented On 4 11:05PM ; [facility] Generalized anxiety disorder NEW PATIENT VISIT w ith SAIRA PRABHAKAR MD 03/30/2014 Last Documented On 4 11:05PM ; [facility] Major depression, recurrent NEW PATIENT VISIT wi th SAIRA PRABHAKAR MD 03/30/2014 Last Documented On 4 11:05PM ; [facility] Persistent insomnia NEW PATIENT VISIT with SUMANTH PRABHAKAR MD 03/30/2014 Last Documented On 4 11:05PM ; [facility] Instructions Includes: Instructions for all patient encounters Education and Decision Aids were provided during visit for: Patient education about medi cation --- I educated patient on medication(s) and diagnosis. I reviewed the risks, benefits and side effects of patient's medications Last Documented On 6 10:37AM ; [facility] Discussed calming techniques such as breathing exercises/meditation and other relaxation techniques Last Documented On 6 10:37AM ; [facility] Counseling for nutrition/guilherme ght management provided Last Documented On 6 1:41PM ; [facility] Patient education about medi cation --- I educated patient on medication(s) and diagnosis. I reviewed the risks, benefits and side effects of patient's medications Last Documented On 6 1:26PM ; [facility] Discussed calming techniques such as breathing exercises/meditation and other relaxation techniques Last Documented On 6 1:26PM ; [facility] Counseling for nutrition/guilherme ght management provided -- pt will start riding her indoor bike 10 min a day at least Last Documented On 6 2:13PM ; [facility] Patient education about medi cation --- I educated patient on medication(s) and diagnosis. I reviewed the risks, benefits and side effects of patient's medications Last Documented On 6 2:51PM ; [facility] Discussed calming techniques such as breathing exercises/meditation and other relaxation techniques Last Documented On 6 2:51PM ; [facility] Counseling for nutrition/guilherme ght management provided Last Documented On 6 5:17PM ; [facility] Patient education about medi cation --- I educated patient on medication(s) and diagnosis. I reviewed the risks, benefits and side effects of patient's medications Last Documented On 5 3:23PM ; [facility] Discussed calming techniques such as breathing exercises/meditation and other relaxation techniques Last Documented On 5 3:23PM ; [facility] Counseling for nutrition/guilherme ght management provided Last Documented On 5 9:39PM ; [facility] Patient education about medi cation --- I educated patient on medication(s) and diagnosis. I reviewed the risks, benefits and side effects of patient's medications Last Documented On 5 8:53AM ; [facility] Discussed calming techniques such as breathing exercises/meditation and other relaxation techniques Last Documented On 5 8:53AM ; [facility] Counseling for nutrition/guilherme ght management provided Last Documented On 5 7:00AM ; [facility] Discussed good sleep hygiene habits Last Documented On 5 7:00AM ; [facility] Patient education about medi cation --- I educated patient on medication(s) and diagnosis. I reviewed the risks, benefits and side effects of patient's medications Last Documented On 5 1:54PM ; [facility] Discussed calming techniques such as breathing exercises/meditation and other relaxation techniques Last Documented On 5 1:54PM ; [facility] Patient education about medi cation --- I educated patient on medication(s) and diagnosis. I reviewed the risks, benefits and side effects of patient's medications Last Documented On 5 9:49PM ; [facility] Discussed calming techniques such as breathing exercises/meditation and other relaxation techniques Last Documented On 5 3:35PM ; [facility] Counseling for nutrition/guilherme ght management provided Last Documented On 5 9:49PM ; [facility] Patient education about medi cation --- I educated patient on medication(s) and diagnosis. I reviewed the risks, benefits and side effects of patient's medications Last Documented On 5 6:33AM ; [facility] Discussed calming techniques such as breathing exercises/meditation and other relaxation techniques Last Documented On 5 3:59PM ; [facility] Counseling for nutrition/guilherme ght management provided Last Documented On 5 6:33AM ; [facility] Patient education about medi cation --- I educated patient on medication(s) and diagnosis. I reviewed the risks, benefits and side effects of patient's medications Last Documented On 4 6:47PM ; [facility] Discussed calming techniques such as breathing exercises/meditation and other relaxation techniques Last Documented On 4 10:47AM ; [facility] Counseling for nutrition/guilherme ght management provided Last Documented On 4 6:47PM ; [facility] Patient education about medi cation --- I educated patient on medication(s) and diagnosis. I reviewed the risks, benefits and side effects of patient's medications Last Documented On 4 11:50PM ; [facility] Discussed calming techniques such as breathing exercises/meditation and other relaxation techniques Last Documented On 4 9:14AM ; [facility] Patient education about medi cation --- I educated patient on medication(s) and diagnosis. I reviewed the risks, benefits and side effects of patient's medications.---continue prozac -- given by Dr. Adrian Last Documented On 4 11:04PM ; [facility] Discussed calming techniques such as breathing exercises/meditation and other relaxation techniques Last Documented On 4 3:07PM ; [facility] Counseling for nutrition/guilherme ght management provided Last Documented On 4 11:04PM ; [facility] Medical Equipment - Implanted Devices Includes: Current and historical Devices No Medical Equipment Recorded Medications Includes: Current and historical Medications Current Medications (continue as prescribed) Rexulti 1 MG Tablet 08/28/2016 Provider: SAIRA PRABHAKAR MD Diagnosis: Major depressive disorder, recurrent, unspecified One tablet daily -- has 30 d ay free voucher given 08/28/16 Last Documented On 6 11:18AM By Anne Prabhakar MD ; [facility] BusPIRone HCl 10 MG Tablet 08/28/2016 Provider: SAIRA PRABHAKAR MD Diagnosis: Generalized anxi ety disorder One tablet twice a day Last Documented On 6 11:18AM By Anne Prabhakar MD ; [facility] FLUoxetine HCl 40 MG Capsule, conventional 08/28/2016 Provider: SAIRA Murray MD Diagnosis: Major depressive disorder, recurrent, unspecified 1 capsule daily Last Documented On 6 11:18AM By Anne Prabhakar MD ; [facility] Rexulti 1 MG Tablet 08/28/2016 Provider: SAIRA PRABHAKAR MD Diagnosis: Major depressive disorder, recurrent, unspecified One tablet daily -- given 2 months samples on 08/28/16 Last Documented On 6 11:22AM By Anne Prabhakar MD ; [facility] Rexulti 1 MG Tablet 07/03/2016 Provider: SAIRA PRABHAKAR MD Diagnosis: Major depressive disorder, recurrent, unspecified One tablet daily Last Documented On 07/03/2016 2:08PM By Anne Prabhakar MD ; [facility] Levothyroxine Sodium 75 MCG OR TABS 03/30/2014 Provi good: Diagnosis: one tablet daily Last Documented On 4 2:51PM By LUIZ RUDD ; [facility] Past Medications on file Rexulti 1 MG Tablet 07/03/2016 - 08/28/2016 Provider: SAIRA PRABHAKAR MD Diagnosis: Major depressive disorder, recurrent, moderate as directed --0.5 mg a day f or 1 week then 1 mg a day thereafter --6 weeks samples given and discount coupon voucher /free for 30 days given on 07/03/16. P.I. given as well Last Documented On 6 10:35AM By NIKKI COOL LPN ; [facility] FLUoxetine HCl 40 MG Capsule, conventional 07/03/2016 - 08/28/2016 Provider: SAIRA PRABHAKAR MD Diagnosis: Major depressive disorder, recurrent, unspecified 1 capsule daily Last Documented On 6 11:18AM By Anne Prabhakar MD ; [facility] BusPIRone HCl 10 MG Tablet 07/03/2016 - 08/28/2016 Provider: SAIRA PRABHAKAR MD Diagnosis: Generalized anxi ety disorder One tablet twice a day Last Documented On 6 11:18AM By Anne Prabhakra MD ; [facility] FLUoxetine HCl 40 MG Capsule, conventional 01/03/2016 - 07/03/2016 Provider: SAIRA PRABHAKAR MD Diagnosis: Major depressive disorder, recurrent, unspecified 1 capsule daily Last Documented On 07/03/2016 2:08PM By Anne Prabhakar MD ; [facility] BusPIRone HCl 10 MG Tablet 01/03/2016 - 07/03/2016 Provider: SAIRA PRABHAKAR MD Diagnosis: Generalized anxi ety disorder One tablet twice a day Last Documented On 07/03/2016 2:08PM By Anne Prabhakar MD ; [facility] Vyvanse 20 MG Capsule, conventional 10/04/2015 - 01/03/2016 Provider: SAIRA PRABHAKAR MD Diagnosis: Attn-defct hyper activity disorder, predom inattentive type 1 Capsule every morning Last Documented On 01/03/2016 3:45PM By Anne Prabhakar MD ; [facility] BusPIRone HCl 10 MG Tablet 10/04/2015 - 01/03/2016 Provider: SAIRA PRABHAKAR MD Diagnosis: Generalized anxi ety disorder One tablet twice a day Last Documented On 01/03/2016 3:36PM By Anne Prabhakar MD ; [facility] FLUoxetine HCl 40 MG Capsule, conventional 10/04/2015 - 01/03/2016 Provider: SAIRA PRABHAKAR MD Diagnosis: Major depressive disorder, recurrent, unspecified 1 capsule daily Last Documented On 01/03/2016 3:36PM By Anne Prabhakar MD ; [facility] Doxepin HCl 10 MG Capsule, conventional 09/14/2015 - 08/28/2016 Provider: SAIRA PRABHAKAR MD Diagnosis: Psychophysiologi c insomnia Take 1 capsule by mouth at bedtime Last Documented On 6 11:07AM By Anne Prabhakar MD ; [facility] Vyvanse 20 MG Capsule 08/09/2015 - 10/04/2015 Provider: SAIRA PRABHAKAR MD Diagnosis: Attn-defct hyper activity disorder, predom inattentive type 1 Capsule every morning Last Documented On 10/04/2015 4:10PM By Anne Prabhakar MD ; [facility] Silenor 3 MG Tablet 08/09/2015 - 10/04/2015 Provider: SAIRA PRABHAKAR MD Diagnosis: Insomnia, unspec ified as directed -- 3 mg --1 or 2 at bedtime as needed for sleep Last Documented On 10/04/2015 3:59PM By Anne Prabhakar MD ; [facility] Silenor 6 MG Tablet 08/09/2015 - 10/04/2015 Provider: SAIRA PRABHAKAR MD Diagnosis: Insomnia, unspec ified One tablet at bed time Last Documented On 10/04/2015 3:58PM By Anne Prabhakar MD ; [facility] BusPIRone HCl 10 MG Tablet 08/09/2015 - 10/04/2015 Provider: SAIRA PRABHAKAR MD Diagnosis: Generalized anxi ety disorder One tablet twice a day Last Documented On 10/04/2015 4:10PM By Anne Prabhakar MD ; [facility] FLUoxetine HCl 40 MG Capsule 08/09/2015 - 10/04/2015 Provider: SAIRA PRABHAKAR MD Diagnosis: Major depressive disorder, recurrent, unspecified 1 capsule daily Last Documented On 10/04/2015 4:10PM By Anne Prabhakar MD ; [facility] Ambien 10 MG Tablet 07/26/2015 - 08/09/2015 Provider: SAIRA PRABHAKAR MD Diagnosis: Insomnia, unspec ified One tablet at bed time as needed for sleep Last Documented On 5 8:54AM By NIKKI COOL LPN ; [facility] Strattera 40 MG Capsule 05/31/2015 - 08/09/2015 Provider: SAIRA PRABHAKAR MD Diagnosis: ATTN DEFIC NONHY PERACT as directed -- 25 mg in am f or 1 week then 40 mg in am for 1 month then 60 mg in am Last Documented On 5 8:55AM By NIKKI COOL LPN ; [facility] TraZODone HCl 50 MG Tablet 05/31/2015 - 08/09/2015 Provider: SAIRA SIEGEL MD Diagnosis: PERSISTENT INSOM JOCELYN One tablet at bed time as needed for sleep Last Documented On 5 8:55AM By NIKKI COOL LPN ; [facility] FLUoxetine HCl 40 MG Capsule 05/31/2015 - 08/09/2015 Provider: SAIRA PRABHAKAR MD Diagnosis: MAJOR DEPRESSION DISORDER/RECURRENT 1 capsule daily Last Documented On 08/09/2015 9:23AM By Anne Prabhakar MD ; [facility] BusPIRone HCl 10 MG Tablet 05/31/2015 - 08/09/2015 Provider: SAIRA PRABHAKAR MD Diagnosis: GENERALIZED ANXI ETY DIS One tablet twice a day Last Documented On 08/09/2015 9:23AM By Anne Prabhakar MD ; [facility] BusPIRone HCl 10 MG Tablet 03/31/2015 - 05/31/2015 Provider: SAIRA PRABHAKAR MD Diagnosis: GENERALIZED ANXI ETY DIS One tablet twice a day Last Documented On 05/31/2015 2:34PM By Anne Prabhakar MD ; [facility] FLUoxetine HCl 40 MG Capsule, conventional 03/01/2015 - 05/31/2015 Provider: SAIRA PRABHAKAR MD Diagnosis: MAJOR DEPRESSION DISORDER/RECURRENT 1 capsule daily Last Documented On 05/31/2015 2:34PM By Anne Prabhakar MD ; [facility] Focalin XR 10 MG Capsule, extended-release 24 hour 03/01/2015 - 10/28/2014 Provider: SAIRA PRABHAKAR MD Diagnosis: ATTN DEFIC NONHYPERACT 1 Capsule every morning Last Documented On 5 2:05PM By NIKKI COOL LPN ; [facility] TraZODone HCl 50 MG Tablet 03/01/2015 - 05/31/2015 Provider: SAIRA SIEGEL MD Diagnosis: PERSISTENT INSOM JOCELYN One tablet at bed time as needed for sleep Last Documented On 05/31/2015 2:34PM By Anne Prabhakar MD ; [facility] BusPIRone HCl 10 MG Tablet 03/01/2015 - 03/31/2015 Provider: SAIRA PRABHAKAR MD Diagnosis: GENERALIZED ANXI ETY DIS One tablet twice a day Last Documented On 03/31/2015 6:38PM By Anne Prabhakar MD ; [facility] TraZODone HCl 50 MG Tablet 02/02/2015 - 03/01/2015 Provider: SAIRA SIEGEL MD Diagnosis: PERSISTENT INSOM JOCELYN One tablet at bed time as needed for sleep Last Documented On 03/01/2015 3:52PM By Anne Prabhakar MD ; [facility] BusPIRone HCl 10 MG Tablet 02/02/2015 - 03/01/2015 Provider: SAIRA PRABHAKAR MD Diagnosis: GENERALIZED ANXI ETY DIS One tablet twice a day Last Documented On 03/01/2015 3:52PM By Anne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
--- OUTSIDE RECORDS SUMMARY | 2025-01-18 18:32 | XMS_ITS ---
Care Plan - [facility] Created on: January 18, 2025 FRANCISCA CONROY : 1960 Sex: Female Author Organization [facility] Address [address] [place] [address] Phone Care Team Providers Care Sightseeing Guide Name Role Phone Unavailable Unavailable Unavailable
--- OUTSIDE RECORDS SUMMARY | 2025-01-18 18:33 | XMS_ITS ---
Care Plan - [facility] Created on: January 18, 2025 PURVIRONAL FRANCISCA A : 1960 Sex: Female Author Organization [facility] Address [address] [place] [address] Phone Care Team Providers Care Winding Lathe Operator Name Role Phone SAIRA MYRICK MD Unavailable [phone]
--- OUTSIDE RECORDS SUMMARY | 2025-01-18 18:33 | XMS_ITS | Clinical Summary ---
Author Organization [facility] Address [address] [place] [address] Phone Care Team Providers Care Marketing Operations Specialist Name Role Phone Unavailable Unavailable Unavailable Reason for Visit and Chief Complaint [Patient Encounter] Problems Includes: Problems addressed during this encounter and other active Problems All Visits Onset Date Resolved Date Provider Condition S tatus Generalized Anxiety Disorder 03/30/2014 Active Last Documented On 3 5:47PM ; [facility] Major Depression, Recurrent 03/30/2014 Active Last Documented On 3 5:47PM ; [facility] Adhd, 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 Last Documented On 3 5:47PM ; [facility] Persistent Insomnia 03/18/2014 Activ e Last Documented On 3 5:47PM ; [facility] Plan of Treatment No Plan of Treatment Recorded Assessments Includes: Assessments from this encounter No Assessments Recorded Medical Equipment - Implanted Devices Includes: Current Devices No Medical Equipment Recorded Medications Includes: Medications discussed during this encounter and other current Medications Current Medications (continue as prescribed) Rexulti 1 MG OR TABS 08/28/2016 Provider: SAIRA PRABHAKAR MD Diagnosis: Major depressive disorder, recurrent, unspecified One tablet daily -- has 30 d ay free voucher given 08/28/16 Last Documented On 02/10/2023 5:37PM By Anne Prabhakar MD ; [facility] Rexulti 1 MG OR TABS 08/28/2016 Provider: SAIRA PRABHAKAR MD Diagnosis: Major depressive disorder, recurrent, unspecified One tablet daily -- given 2 months samples on 08/28/16 Last Documented On 02/10/2023 5:37PM By Anne Prabhakar MD ; [facility] FLUoxetine HCl 40 MG OR CAPS 08/28/2016 Provider: SAIRA PRABHAKAR MD Diagnosis: Major depressive disorder, recurrent, unspecified 1 capsule daily Last Documented On 02/10/2023 5:37PM By Anne Prabhakar MD ; [facility] busPIRone HCl 10 MG OR TABS 08/28/2016 Provider: SAIRA PRABHAKAR MD Diagnosis: Generalized anxi ety disorder One tablet twice a day Last Documented On 02/10/2023 5:37PM By Anne Prabhakar MD ; [facility] Rexulti 1 MG OR TABS 07/03/2016 Provider: SAIRA PRABHAKAR MD Diagnosis: Major depressive disorder, recurrent, unspecified One tablet daily Last Documented On 02/10/2023 5:37PM By Anne Prabhakar MD ; [facility] Levothyroxine Sodium 75 MCG OR TABS 03/30/2014 Provi good: Diagnosis: one tablet daily Last Documented On 02/10/2023 5:37PM By LUIZ RUDD ; [facility] Medications Administered Includes: Administered Medications from this encounter No Administered Medications Recorded Vital Signs Includes: Vital Signs from this encounter Vital Name 07/03/2016 01:37P Blood Pressure Sitting (mmHg) 124/76 BP Cuff Size Large Pulse Rate-Sitting (bpm) 72 Pulse Rhythm Regular Height (in) 63 Weight (lb) 200 Body Mass Index (kg/m2) 35.4 Body Surface Area (m2) 1.9 Last Documented: On 02/10/2023 5:54PM ; [facility] Results Includes: Results discussed during this [...] Active Last Documented On 02/10/2023 5:39PM ; [facility] Note: Imported from external source. traZODone HCl Allergy chest pounding a nd severe dizziness 08/09/2015 Active Last Documented On 02/10/2023 5:39PM ; [facility] Note: Imported from external source. Sulfa Antibiotics Allergy 03/30/2014 A ctive Last Documented On 02/10/2023 5:39PM ; [facility] Note: Imported from external source. Strattera Allergy pounding chest 08/09/2015 Acti ve Last Documented On 02/10/2023 5:39PM ; [facility] Note: Imported from external source. Penicillin V Potassium Allergy 03/30/2014 Active Last Documented On 02/10/2023 5:39PM ; [facility] Note: Imported from external source. Focalin Allergy fast heart rate 05/31/2015 Act arnaud Last Documented On 02/10/2023 5:39PM ; [facility] Note: Imported from external source. Encounters Encounter Provider Location Date Check-In Time Check-Out Time Diagnosis [Patient Encounter] 07/03/2016 12:00AM 11:59PM Clinical Notes Includes: Clinical Notes from this encounter No Clinical Notes Recorded
--- OUTSIDE RECORDS SUMMARY | 2025-01-18 18:33 | XMS_ITS | Clinical Summary ---
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 Last Documented On 3 5:47PM ; [facility] Persistent Insomnia 03/18/2014 Activ e Last Documented On 3 5:47PM ; [facility] Plan of Treatment No Plan of Treatment Recorded Assessments Includes: Assessments from this encounter No Assessments Recorded Medical Equipment - Implanted Devices Includes: Current Devices No Medical Equipment Recorded Medications Includes: Medications discussed during this encounter and other current Medications Discontinued / Stopped on this date SAIRA PRABHAKAR MD on 07/03/2016 Rexulti 1 MG OR TABS Provider: SAIRA PRABHAKAR MD Diagnosis: Major depressive disorder, recurrent, moderate Last Documented On 02/10/2023 5:37PM By Anne Prabhakar MD ; [facility] Doxepin HCl 10 MG OR CAPS Provider: Diagnosis: Psychophysiologi c insomnia Last Documented On 02/10/2023 5:37PM By NIKKI COOL LPN ; [facility] Current Medications (continue as prescribed) Rexulti 1 MG OR TABS 08/28/2016 Provider: SAIRA PRABHAKAR MD Diagnosis: Major depressive disorder, recurrent, unspecified One tablet daily -- has 30 d ay free voucher given 08/28/16 Last Documented On 02/10/2023 5:37PM By Anne Prabhakar MD ; [facility] Rexulti 1 MG OR TABS 08/28/2016 Provider: SAIRA PRABHAKAR MD Diagnosis: Major depressive disorder, recurrent, unspecified One tablet daily -- given 2 months samples on 08/28/16 Last Documented On 02/10/2023 5:37PM By Anne Prabhakar MD ; [facility] FLUoxetine HCl 40 MG OR CAPS 08/28/2016 Provider: SAIRA PRABHAKAR MD Diagnosis: Major depressive disorder, recurrent, unspecified 1 capsule daily Last Documented On 02/10/2023 5:37PM By Anne Prabhakar MD ; [facility] busPIRone HCl 10 MG OR TABS 08/28/2016 Provider: SAIRA PRABHAKAR MD Diagnosis: Generalized anxi ety disorder One tablet twice a day Last Documented On 02/10/2023 5:37PM By Anne Prabhakar MD ; [facility] Rexulti 1 MG OR TABS 07/03/2016 Provider: SAIRA PRABHAKAR MD Diagnosis: Major depressive disorder, recurrent, unspecified One tablet daily Last Documented On 02/10/2023 5:37PM By Anne Prabhakar MD ; [facility] Levothyroxine Sodium 75 MCG OR TABS 03/30/2014 Provi good: Diagnosis: one tablet daily Last Documented On 02/10/2023 5:37PM By LUIZ RUDD ; [facility] Medications Administered Includes: Administered Medications from this encounter No Administered Medications Recorded Vital Signs Includes: Vital Signs from this encounter Vital Name 08/28/2016 10:38A Blood Pressure Sitting (mmHg) 134/72 BP Cuff Size Regular Pulse Rate-Sitting (bpm) 76 Pulse Rhythm Regular Height (in) 63 Weight (lb) 206 Body Mass Index (kg/m2) 36.5 Body Surface Area (m2) 2.0 Last Documented: On 02/10/2023 5:54PM ; [facility] Results Includes: Results discussed during [...] Active Last Documented On 02/10/2023 5:39PM ; [facility] Note: Imported from external source. traZODone HCl Allergy chest pounding a nd severe dizziness 08/09/2015 Active Last Documented On 02/10/2023 5:39PM ; [facility] Note: Imported from external source. Sulfa Antibiotics Allergy 03/30/2014 A ctive Last Documented On 02/10/2023 5:39PM ; [facility] Note: Imported from external source. Strattera Allergy pounding chest 08/09/2015 Acti ve Last Documented On 02/10/2023 5:39PM ; [facility] Note: Imported from external source. Penicillin V Potassium Allergy 03/30/2014 Active Last Documented On 02/10/2023 5:39PM ; [facility] Note: Imported from external source. Focalin Allergy fast heart rate 05/31/2015 Act arnaud Last Documented On 02/10/2023 5:39PM ; [facility] Note: Imported from external source. Encounters Encounter Provider Location Date Check-In Time Check-Out Time Diagnosis [Patient Encounter] 08/28/2016 12:00AM 11:59PM Clinical Notes Includes: Clinical Notes from this encounter No Clinical Notes Recorded
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
--- OUTSIDE RECORDS SUMMARY | 2025-01-18 18:33 | XMS_ITS ---
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 Last Documented On 3 5:47PM ; [facility] Persistent Insomnia 03/18/2014 Activ e Last Documented On 3 5:47PM ; [facility] Plan of Treatment No Plan of Treatment Recorded Assessments Includes: Assessments for all patient encounters No Assessments Recorded Medical Equipment - Implanted [...] 02/10/2023 5:37PM By Anne Prabhakar MD ; [facility] Rexulti 1 MG OR TABS 08/28/2016 Provider: SAIRA PRABHAKAR MD Diagnosis: Major depressive disorder, recurrent, unspecified One tablet daily -- given 2 months samples on 08/28/16 Last Documented On 02/10/2023 5:37PM By Anne Prabhakar MD ; [facility] FLUoxetine HCl 40 MG OR CAPS 08/28/2016 Provider: SAIRA PRABHAKAR MD Diagnosis: Major depressive disorder, recurrent, unspecified 1 capsule daily Last Documented On 02/10/2023 5:37PM By Anne Prabhakar MD ; [facility] busPIRone HCl 10 MG OR TABS 08/28/2016 Provider: SAIRA PRABHAKAR MD Diagnosis: Generalized anxi ety disorder One tablet twice a day Last Documented On 02/10/2023 5:37PM By Anne Prabhakar MD ; [facility] Rexulti 1 MG OR TABS 07/03/2016 Provider: SAIRA PRABHAKAR MD Diagnosis: Major depressive disorder, recurrent, unspecified One tablet daily Last Documented On 02/10/2023 5:37PM By Anne Prabhakar MD ; [facility] Levothyroxine Sodium 75 MCG OR TABS 03/30/2014 Provi good: Diagnosis: one tablet daily Last Documented On 02/10/2023 5:37PM By LUIZ RUDD ; [facility] Past Medications on file busPIRone HCl 10 MG OR TABS 07/03/2016 - 08/28/2016 Provider: SAIRA PRABHAKAR MD Diagnosis: Generalized anxi ety disorder One tablet twice a day Last Documented On 02/10/2023 5:37PM By Anne Prabhakar MD ; [facility] FLUoxetine HCl 40 MG OR CAPS 07/03/2016 - 08/28/2016 Provider: SAIRA PRABHAKAR MD Diagnosis: Major depressive disorder, recurrent, unspecified 1 capsule daily Last Documented On 02/10/2023 5:37PM By Anne Prabhakar MD ; [facility] Rexulti 1 MG OR TABS 07/03/2016 - 08/28/2016 Provider: SAIRA PRABHAKAR MD Diagnosis: Major depressive disorder, recurrent, moderate as directed --0.5 mg a day f or 1 week then 1 mg a day thereafter --6 weeks samples given and discount coupon voucher /free for 30 days given on 07/03/16. P.I. given as well Last Documented On 02/10/2023 5:37PM By Anne Prabhakar MD ; [facility] busPIRone HCl 10 MG OR TABS 01/03/2016 - 07/03/2016 Provider: SAIRA PRABHAKAR MD Diagnosis: Generalized anxi ety disorder One tablet twice a day Last Documented On 02/10/2023 5:37PM By Anne Prabhakar MD ; [facility] FLUoxetine HCl 40 MG OR CAPS 01/03/2016 - 07/03/2016 Provider: SAIRA PRABHAKAR MD Diagnosis: Major depressive disorder, recurrent, unspecified 1 capsule daily Last Documented On 02/10/2023 5:37PM By Anne Prabhakar MD ; [facility] FLUoxetine HCl 40 MG OR CAPS 10/04/2015 - 01/03/2016 Provider: SAIRA PRABHAKAR MD Diagnosis: Major depressive disorder, recurrent, unspecified 1 capsule daily Last Documented On 02/10/2023 5:37PM By Anne Prabhakar MD ; [facility] Vyvanse 20 MG OR CAPS 10/04/2015 - 01/03/2016 Provider: SAIRA PRABHAKAR MD Diagnosis: Attn-defct hyper activity disorder, predom inattentive type 1 Capsule every morning Last Documented On 02/10/2023 5:37PM By Anne Prabhakar MD ; [facility] busPIRone HCl 10 MG OR TABS 10/04/2015 - 01/03/2016 Provider: SAIRA PRABHAKAR MD Diagnosis: Generalized anxi ety disorder One tablet twice a day Last Documented On 02/10/2023 5:37PM By Anne Prabhakar MD ; [facility] Doxepin HCl 10 MG OR CAPS 09/14/2015 - 08/28/2016 Prov ider: Diagnosis: Psychophysiologi c insomnia Take 1 capsule by mouth at bedtime Last Documented On 02/10/2023 5:37PM By NIKKI COOL LPN ; [facility] busPIRone HCl 10 MG OR TABS 08/09/2015 - 10/04/2015 Provider: SAIRA PRABHAKAR MD Diagnosis: Generalized anxi ety disorder One tablet twice a day Last Documented On 02/10/2023 5:37PM By Anne Prabhakar MD ; [facility] Vyvanse 20 MG OR CAPS 08/09/2015 - 10/04/2015 Provider: SAIRA PRABHAKAR MD Diagnosis: Attn-defct hyper activity disorder, predom inattentive type 1 Capsule every morning Last Documented On 02/10/2023 5:37PM By Anne Prabhakar MD ; [facility] Silenor 3 MG OR TABS 08/09/2015 - 10/04/2015 Provider: SAIRA PRABHAKAR MD Diagnosis: Insomnia, unspec ified as directed -- 3 mg --1 or 2 at bedtime as needed for sleep Last Documented On 02/10/2023 5:37PM By Anne Prabhakar MD ; [facility] Silenor 6 MG OR TABS 08/09/2015 - 10/04/2015 Provider: SIARA PRABHAKAR MD Diagnosis: Insomnia, unspec ified One tablet at bed time Last Documented On 02/10/2023 5:37PM By Anne Prabhakar MD ; [facility] FLUoxetine HCl 40 MG OR CAPS 08/09/2015 - 10/04/2015 Provider: SAIRA PRABHAKAR MD Diagnosis: Major depressive disorder, recurrent, unspecified 1 capsule daily Last Documented On 02/10/2023 5:37PM By Anne Prabhakar MD ; [facility] Ambien 10 MG OR TABS 07/26/2015 - 08/09/2015 Provider: SAIRA PRABHAKAR MD Diagnosis: Insomnia, unspec ified One tablet at bed time as needed for sleep Last Documented On 02/10/2023 5:37PM By Anne Prabhakar MD ; [facility] FLUoxetine HCl 40 MG OR CAPS 05/31/2015 - 08/09/2015 Provider: SAIRA PRABHAKAR MD Diagnosis: MAJOR DEPRESSION DISORDER/RECURRENT 1 capsule daily Last Documented On 02/10/2023 5:37PM By Anne Prabhakar MD ; [facility] Strattera 40 MG OR CAPS 05/31/2015 - 08/09/2015 Provider: SAIRA PRABHAKAR MD Diagnosis: ATTN DEFIC NONHY PERACT as directed -- 25 mg in am f or 1 week then 40 mg in am for 1 month then 60 mg in am Last Documented On 02/10/2023 5:37PM By Anne Prabhakar MD ; [facility] busPIRone HCl 10 MG OR TABS 05/31/2015 - 08/09/2015 Provider: SAIRA PRABHAKAR MD Diagnosis: GENERALIZED ANXI ETY DIS One tablet twice a day Last Documented On 02/10/2023 5:37PM By Anne Prabhakar MD ; [facility] traZODone HCl 50 MG OR TABS 05/31/2015 - 08/09/2015 Provider: SAIRA SIEGEL MD Diagnosis: PERSISTENT INSOM JOCELYN One tablet at bed time as needed for sleep Last Documented On 02/10/2023 5:37PM By Anne Prabhakar MD ; [facility] busPIRone HCl 10 MG OR TABS 03/31/2015 - 05/31/2015 Provider: SAIRA PRABHAKAR MD Diagnosis: GENERALIZED ANXI ETY DIS One tablet twice a day Last Documented On 02/10/2023 5:37PM By Anne Prabhakar MD ; [facility] FLUoxetine HCl 40 MG OR CAPS 03/01/2015 - 05/31/2015 Provider: SAIRA PRABHAKAR MD Diagnosis: MAJOR DEPRESSION DISORDER/RECURRENT 1 capsule daily Last Documented On 02/10/2023 5:37PM By Anne Prabhakar MD ; [facility] busPIRone HCl 10 MG OR TABS 03/01/2015 - 03/31/2015 Provider: SAIRA PRABHAKAR MD Diagnosis: GENERALIZED ANXI ETY DIS One tablet twice a day Last Documented On 02/10/2023 5:37PM By Anne Prabhakar MD ; [facility] traZODone HCl 50 MG OR TABS 03/01/2015 - 05/31/2015 Provider: SAIRA SIEGEL MD Diagnosis: PERSISTENT INSOM JOCELYN One tablet at bed time as needed for sleep Last Documented On 02/10/2023 5:37PM By Anne Prabhakar MD ; [facility] Focalin XR 10 MG OR CP24 03/01/2015 - 10/28/2014 Provider: SAIRA SIEGEL MD Diagnosis: ATTN DEFIC NONHY PERACT 1 Capsule every morning Last Documented On 02/10/2023 5:37PM By Anne Prabhakar MD ; [facility] traZODone HCl 50 MG OR TABS 02/02/2015 - 03/01/2015 Provider: SAIRA SIEGEL MD Diagnosis: PERSISTENT INSOM JOCELYN One tablet at bed time as needed for sleep Last Documented On 02/10/2023 5:37PM By Anne Prabhakar MD ; [facility] busPIRone HCl 10 MG OR TABS 02/02/2015 - 03/01/2015 Provider: SAIRA PRABHAKAR MD Diagnosis: GENERALIZED ANXI ETY DIS One tablet twice a day Last Documented On 02/10/2023 5:37PM By Anne Prabhakar MD ; [facility] Focalin XR 10 MG OR CP24 02/01/2015 - 03/01/2015 Provider: SAIRA SIEGEL MD Diagnosis: ATTN DEFIC NONHY PERACT 1 Capsule every morning Last Documented On 02/10/2023 5:37PM By Anne Prabhakar MD ; [facility] FLUoxetine HCl 40 MG OR CAPS 02/01/2015 - 03/01/2015 Provider: SAIRA PRABHAKAR MD Diagnosis: MAJOR DEPRESSION DISORDER/RECURRENT 1 capsule daily Last Documented On 02/10/2023 5:37PM By Anne Prabhakar MD ; [facility] busPIRone HCl 10 MG OR TABS 10/26/2014 - 02/01/2015 Provider: SAIRA PRABHAKAR MD Diagnosis: GENERALIZED ANXI ETY DIS Last Documented On 02/10/2023 5:37PM By Anne Prabhakar MD ; [facility] traZODone HCl 50 MG OR TABS 09/28/2014 - 02/01/2015 Provider: SAIRA SIEGEL MD Diagnosis: PERSISTENT INSOM JOCELYN as needed for sleep Last Documented On 02/10/2023 5:37PM By Anne Prabhakar MD ; [facility] busPIRone HCl 10 MG OR TABS 09/07/2014 - 10/26/2014 Provider: SAIRA PRABHAKAR MD Diagnosis: GENERALIZED ANXI ETY DIS Last Documented On 02/10/2023 5:37PM By Anne Prabhakar MD ; [facility] traZODone HCl 50 MG OR TABS 09/07/2014 - 09/28/2014 Provider: SAIRA SIEGEL MD Diagnosis: PERSISTENT INSOM JOCELYN as needed for sleep Last Documented On 02/10/2023 5:37PM By Anne Prabhakar MD ; [facility] FLUoxetine HCl 40 MG OR CAPS 09/07/2014 - 02/01/2015 Provider: SAIRA PRABHAKAR MD Diagnosis: MAJOR DEPRESSION DISORDER/RECURRENT Last Documented On 02/10/2023 5:37PM By Anne Prabhakar MD ; [facility] busPIRone HCl 10 MG OR TABS 08/18/2014 - 09/07/2014 Provider: SAIRA PRABHAKAR MD Diagnosis: GENERALIZED ANXI ETY DIS Last Documented On 02/10/2023 5:37PM By Anne Prabhakar MD ; [facility] busPIRone HCl 10 MG OR TABS 05/05/2014 - 08/18/2014 Provider: SAIRA PRABHAKAR MD Diagnosis: GENERALIZED ANXI ETY DIS Last Documented On 02/10/2023 5:37PM By Anne Prabhakar MD ; [facility] traZODone HCl 50 MG OR TABS 05/05/2014 - 09/07/2014 Provider: SAIRA SIEGEL MD Diagnosis: PERSISTENT INSOM JOCELYN as needed for sleep Last Documented On 02/10/2023 5:37PM By Anne Prabhakar MD ; [facility] FLUoxetine HCl 40 MG OR CAPS 05/05/2014 - 09/07/2014 Provider: SAIRA PRABHAKAR MD Diagnosis: MAJOR DEPRESSION DISORDER/RECURRENT from Dr. Adrian -- has refills Last Documented On 02/10/2023 5:37PM By Anne Prabhakar MD ; [facility] clonazePAM 1 MG OR TABS 04/12/2014 - 05/12/2014 Provider: SAIRA PRABHAKAR MD Diagnosis: GENERALIZED ANXI ETY DIS 1 at bedtime as needed -- gi abdias Dr. Casimiro Adrian Last Documented On 02/10/2023 5:37PM By Anne Prabhakar MD ; [facility] traZODone HCl 50 MG OR TABS 04/10/2014 - 05/05/2014 Provider: SAIRA SIEGEL MD Diagnosis: PERSISTENT INSOM JOCELYN as needed for sleep Last Documented On 02/10/2023 5:37PM By Anne Prabhakar MD ; [facility] busPIRone HCl 10 MG OR TABS 04/10/2014 - 05/05/2014 Provider: SAIRA PRABHAKAR MD Diagnosis: GENERALIZED ANXI ETY DIS Last Documented On 02/10/2023 5:37PM By Anne Prabhakar MD ; [facility] FLUoxetine HCl 40 MG OR CAPS 04/10/2014 - 05/05/2014 Provider: SAIRA PRABHAKAR MD Diagnosis: MAJOR DEPRESSION DISORDER/RECURRENT Last Documented On 02/10/2023 5:37PM By Anne Prabhakar MD ; [facility] FLUoxetine HCl 40 MG OR CAPS 03/30/2014 - 03/30/2014 Judd de luna: Diagnosis: one tablet daily Last Documented On 02/10/2023 5:37PM By LUIZ RUDD ; [facility] FLUoxetine HCl 20 MG OR CAPS 03/30/2014 - 03/30/2014 P rovider: Diagnosis: one tablet daily Last Documented On 02/10/2023 5:37PM By LUIZ RUDD ; [facility] clonazePAM 1 MG OR TABS 03/30/2014 - 03/30/2014 Provid er: Diagnosis: 1 nightly Last Documented On 02/10/2023 5:37PM By LUIZ RUDD ; [facility] Medications Administered Includes: Administered Medications in patient's chart No Administered Medications Recorded Results Includes: Results from 01/19/2024 through 01/18/2025 No Results Recorded For Specified Dates History of Present Illness History of Present Illness not supported for this document type No History of Present Illness Recorded Social History No Social History Recorded - Smoking Status Unknown Medical History Includes: Medical History in patient's chart No Medical History Recorded Family History Includes: Family History in patient's chart No Family History Recorded Review of Systems Review of Systems not supported for this document type No Review of Systems Recorded Mental Status No Mental Status Recorded Functional Status No Functional Status Recorded Physical Exam Physical Exam not supported for this document type No Physical Exam Recorded Allergies Includes: Active, inactive, and resolved Allergies Substance Type Reaction Onset Date Resolved Date Statu s Zolpidem Tartrate Allergy Nausea, Vomiti ng, Diarrhea / Diarrheal disorder, flu sx and nightmares 08/09/2015 Active Last Documented On 02/10/2023 5:39PM ; [facility] Note: Imported from external source. traZODone HCl Allergy chest pounding a nd severe dizziness 08/09/2015 Active Last Documented On 02/10/2023 5:39PM ; [facility] Note: Imported from external source. Sulfa Antibiotics Allergy 03/30/2014 A ctive Last Documented On 02/10/2023 5:39PM ; [facility] Note: Imported from external source. Strattera Allergy pounding chest 08/09/2015 Acti ve Last Documented On 02/10/2023 5:39PM ; [facility] Note: Imported from external source. Penicillin V Potassium Allergy 03/30/2014 Active Last Documented On 02/10/2023 5:39PM ; [facility] Note: Imported from external source. Focalin Allergy fast heart rate 05/31/2015 Act arnaud Last Documented On 02/10/2023 5:39PM ; [facility] Note: Imported from external source. Clinical Notes Includes: Signed Clinical Notes starting from 11/03/2022 No Clinical Notes Recorded
--- NOTE | 2025-01-18 18:36 | ECG_ITS ---
Test Date: 2025-01-18 18:43:15 Measurements Intervals Revloc Rate: 66 P: 49 AL: 137 QRS: 89 QRSD: 82 T: 57 QT: 392 QTc: 412 Interpretive Statements SINUS RHYTHM LOW QRS VOLTAGE IN PRECORDIAL LEADS CONSIDER ANTERIOR INFARCT, AGE INDETERMINATE BASELINE ARTIFACT- I, II, III, AVR, AVL, AVF, V1-V6 ABNORMAL ECG No previous ECG available for comparison Electronically Signed On 01-18-2025 20:33:30 CDT by Gavin Mejia D.O.
[2025-01-18 18:54] LABS: Basophils Absolute Auto 0.1 K/mm3 (0.0-0.1); Basophils Percent Auto 0.8 % (0.2-1.2); Eosinophils Absolute Auto 0.3 K/mm3 (0-0.3); Hematocrit 38.7 % (37.0-47.0); Hemoglobin 12.4 g/dL (12.0-15.0); Immature Granulocyte Absolute 0.06 K/mm3 (0.00-0.031); Immature Granulocyte Percent A 0.6 % (0-0.5); Lymphocytes Absolute Auto 2.83 K/mm3 (0.9-3.2); Lymphocytes Percent Auto 27.1 % (18.3-44.2); Mean Corpuscular Hemoglobin 30.2 pg (26-34); Mean Corpuscular Volume 94.2 fl (80-100); Mean Platelet Volume 10.9 fl (7.4-10.4); Monocytes Absolute Auto 0.8 K/mm3 (0.1-0.6); Monocytes Percent Auto 7.4 % (2.6-8.5); Neutrophils Absolute Auto 6.4 K/mm3 (1.3-6.7); Neutrophils Percent Auto 61.1 % (45.5-73.1); Platelet Count Result 279 k/mm3 (150-375); Red Blood Count 4.11 M/mm3 (4.2-5.4); Red Cell Distribution Width 13.6 % (11.5-14.5); White Blood Count 10.5 K/mm3 (4.5-10.0)
[2025-01-18 19:04] LABS: Alanine Aminotransferase 18 U/L (6-35); Albumin Level 4.1 g/dL (3.5-5.1); Alkaline Phosphatase 104 U/L (38-126); Anion Gap 8 mmol/L (4-12); Aspartate Amino Transferase 23 U/L (14-36); Bilirubin,Total 0.4 mg/dL (0.2-1.3); Blood Urea Nitrogen 20 mg/dL (7-17); Calcium 8.9 mg/dL (8.4-10.2); Carbon Dioxide 25 mmol/L (22-30); Chloride 106 mmol/L (98-107); Estimated CRCL calculation 61 ml/min; Estimated Glomerular Filt Rate > 60; Glucose 136 mg/dL (65-110); Lipase 33 U/L (23-300); Sodium 139 mmol/L (137-145)
[2025-01-18 19:05] LABS: Partial Thromboplastin Time 26.1 Seconds (22.3-36.8); Prothrombin Time 13.3 Seconds (11.1-14.7)
--- NOTE | 2025-01-18 19:13 | ED_ITS ---
HPI - Chest Pain General Chief Complaint: Chest Pain Stated Complaint: chest pain all day Time Seen by Provider: 01/18/25 18:44 Source: patient Mode of arrival: ambulatory Limitations: no limitations History of Present Illness HPI narrative: This is a 64-year-old female with PMH of type 2 diabetes who presents to the ED for chief complaint of chest pain beginning this morning. Patient states that she has had rather continuous pain throughout the day but waxes and wanes in severity. Reports pain to the middle of the chest and intermittent pains in the midscapular area. States that she noticed the pain after breakfast this morning and did notice it come on a little more while they were working in the basement. Denies any associated nausea, vomiting, syncope, diaphoresis. Denies pleuritic pain or shortness of breath. Denies leg swelling, palpitations, any cardiac history. Reports father with [place], CABG in his 70s. Related Data Allergies Allergy/AdvReac Type Severity Reaction Status Date / Time Penicillins Allergy Intermediate hives Verified 01/18/25 18:53 Sulfa (Sulfonamide Allergy Intermediate hives Verified 01/18/25 18:53 Antibiotics) Review of Systems 2 Review of Systems: All systems as dictated in HPI [facility] Past Medical History Medical History Arthritis of right hip Subjective tinnitus of both ears History of chicken pox History of mumps History of measles Tinnitus COVID-19 Obesity (BMI 30.0-34.9) Unspecified asthma, uncomplicated Surgical History Surgical History History of tonsillectomy (~1970) Family History Family History Father , age 76 Diabetes mellitus Carcinoma of colon Heart disease Cancer Hypertension Thyroid disorder Mother No problems noted. Sibling Kidney disease Sibling No problems noted. Sibling Heart disease Grandparent , age 82 Arthritis Alcoholism Family history of cardiovascular disease Grandparent , age 68 Leukemia Grandparent , age 91 No problems noted. Grandparent , age 71 Heart disease Cerebrovascular accident Cancer Daughter Gestational diabetes Son No problems noted. Other Depression Other Malignant neoplasm of prostate Social History Social History Smoking status: Never smoker Alcohol intake: former Substance use type: does not use Lack of Transportation: No Lack of Food: Never True Current Housing: I Have Housing Concerned About Future Housing: No Difficulty Paying Gas/Electric Bills: No Difficulty Paying for Meds: No Currently Unemployed: No Education: Bachelor's Degree Difficulty w/ Childcare or Family Care: No Living arrangements: with family Additional occupation/education comments: [employer] 2 Narrative: GENERAL: Well-appearing, well-nourished, and in no acute distress. HEAD: Normocephalic, atraumatic. EYES: PERRLA and EOMI. ENT: Nares clear, no rhinorrhea or epistaxis. Mucous membranes moist. Oropharynx without tonsillar hypertrophy exudate or other lesions. NECK: Supple. No adenopathy or masses. CHEST: No respiratory distress. Clear to auscultation. No wheezes rales or rhonchi HEART: Regular rate and rhythm. No murmur heard. Normal peripheral pulses. ABDOMEN: Soft, nontender, nondistended, normal active bowel sounds. MSK: Normal range of motion. No edema. SKIN: Warm, dry, no rash. NEURO: Alert and oriented x4. No focal deficits. PSYCH: Normal mood and affect. Course Vital Signs Vital signs: Vital Signs Pulse Rate 66 01/18/25 18:47 Respiratory Rate 13 01/18/25 18:47 Pulse Oximetry 96 01/18/25 18:47 Temperature 98.1 F 01/18/25 18:50 Pulse Rate 57 L 01/18/25 21:45 Respiratory Rate 14 01/18/25 21:45 Blood Pressure 119/70 01/18/25 21:02 Pulse Oximetry 97 01/18/25 21:45 Oxygen Delivery Room Air 01/18/25 21:56 MDM - Chest Pain MDM Narrative Medical decision making narrative: This is a 64-year-old female who presents to the ED for chief complaint of chest pain intermittent over the past 12 hours. Vitals are normal. Physical exam is benign. EKG shows sinus rhythm with no acute ischemia. Lab work shows negative troponin at the 0 and 3 hour kali. D-dimer very slightly elevated at 0.50 although risk factors for blood clot or low. Chest x-ray shows no acute findings. CTA chest shows no acute PE, aortic dissection or aneurysm. Patient is pain free on re-evaluation. Heart score is 3. Shared decision making regarding disposition. She feels very comfortable going home at this point following up with PCP tomorrow. Presentation consistent with atypical chest pain versus musculoskeletal chest pain. Patient will be discharged in stable condition. Supportive measures discussed and strict return precautions given. Patient is understanding and agreeable with plan for discharge with PCP follow-up. Lab Data 01/18/25 18:48 01/18/25 18:48 Labs: Lab Results 01/18/25 01/18/25 Range/Units 18:48 21:39 WBC 10.5 H (4.5-10.0) K/mm3 RBC 4.11 L (4.2-5.4) M/mm3 Hgb 12.4 (12.0-15.0) g/dL Hct 38.7 (37.0-47.0) % MCV 94.2 (80-100) fl MCH 30.2 (26-34) pg MCHC 32.0 (32-36) g/dl RDW 13.6 (11.5-14.5) % Plt Count 279 (150-375) k/mm3 MPV 10.9 H (7.4-10.4) fl Immature Gran % (Auto) 0.6 H (0-0.5) % Neut % (Auto) 61.1 (45.5-73.1) % Lymph % (Auto) 27.1 (18.3-44.2) % [place] % (Auto) 7.4 (2.6-8.5) % Eos % (Auto) 3.0 (0-4.4) % Baso % (Auto) 0.8 (0.2-1.2) % Lymph # (Auto) 2.83 (0.9-3.2) K/mm3 [place] # (Auto) 0.8 H (0.1-0.6) K/mm3 Eos # (Auto) 0.3 (0-0.3) K/mm3 Baso # (Auto) 0.1 (0.0-0.1) K/mm3 Abs Immat Gran (auto) 0.06 H (0.00-0.031) K/mm3 Absolute Neuts (auto) 6.4 (1.3-6.7) K/mm3 Absolute Nucleated RBC 0.000 (0.0-0.012) K/mm3 Nucleated RBC % 0.0 (0.0-0.2) % PT 13.3 (11.1-14.7) Seconds INR 1.0 APTT 26.1 (22.3-36.8) Seconds D-Dimer 0.50 H (<0.48) ug/mL Sodium 139 (137-145) mmol/L Potassium 4.0 (3.4-5.0) mmol/L Chloride 106 (98-107) mmol/L Carbon Dioxide 25 (22-30) mmol/L Anion Gap 8 (4-12) mmol/L BUN 20 H (7-17) mg/dL Creatinine 0.84 (0.7-1.0) mg/dL Estim Creat Clear Calc 61 ml/min Estimated GFR > 60 (59 - ) Glucose 136 H (65-110) mg/dL Calcium 8.9 (8.4-10.2) mg/dL Total Bilirubin 0.4 (0.2-1.3) mg/dL AST 23 (14-36) U/L ALT 18 (6-35) U/L Alkaline Phosphatase 104 (38-126) U/L Troponin I < 0.012 < 0.012 (0.000-0.034) ng/mL NT-Pro-B Natriuret Pep 208 H (19.9-100) pg/mL Total Protein 7.0 (6.3-8.2) g/dL Albumin 4.1 (3.5-5.1) g/dL Lipase 33 (23-300) U/L ECG Data EKG #1: ECG completion date: 01/18/25 ECG completion time: 18:43 Prior ECG tracings: available for review Interpretation: Sinus rhythm Rate 66 Normal QRS No acute ischemic findings Discharge Plan Discharge Clinical Impression: Chest pain Patient Disposition: Home, Self-Care Condition: Stable Instructions: Antibiotic Form, Chest Pain (ED) Additional Instructions: Your seen in the ER today for chest pain. Please follow-up closely with your PCP tomorrow for recheck. If you have any new or worsening symptoms such as increasing chest pain, shortness of breath or feeling faint please return to the ER immediately for re-evaluation. Use Tylenol 500 mg as needed for pain control. Patient Language: Citizen Of [place] Prescriptions: No Action albuterol sulfate 90 mcg/actuation HFA aerosol inhaler 2 inh inhalation Q4-6H PRN (Reason: shortness of breath or wheezing) Qty: 8.5 0RF (DME) BreatheRite MDI Spacer Spacer See Rx Instructions .ROUTE .MEDSUPPLY Qty: 1 0RF Rx Instructions: As directed fluoxetine 40 mg capsule 40 mg PO DAILY Qty: 90 1RF fluticasone propion-salmeterol [Wixela Inhub] 250-50 mcg/dose blister with device See Rx Instructions .ROUTE .COMPLEX PRN (Reason: wheezing) Qty: 60 1RF Dose Instruction: INHALE ONE PUFF BY MOUTH TWICE A DAY Rx Instructions: INHALE ONE PUFF BY MOUTH TWICE A DAY PRN; fluoxetine [Prozac] 20 mg capsule 20 mg PO DAILY Qty: 90 1RF alprazolam 0.25 mg tablet 0.25 mg PO TID PRN (Reason: anxiety) Qty: 90 3RF metformin 500 mg tablet extended release 24 hr See Rx Instructions .ROUTE .COMPLEX Qty: 90 1RF Dose Instruction: TAKE ONE TABLET BY MOUTH ONCE DAILY - TAKE WITH THE LARGEST MEAL Rx Instructions: TAKE ONE TABLET BY MOUTH ONCE DAILY - TAKE WITH THE LARGEST MEAL levothyroxine 75 mcg tablet See Rx Instructions .ROUTE .COMPLEX Qty: 90 1RF Dose Instruction: TAKE 1 TABLET BY MOUTH EVERY DAY Rx Instructions: TAKE 1 TABLET BY MOUTH EVERY DAY Follow-up/Referrals: Casimiro Adrian MD [Primary Care Provider] - Time of Disposition: 22:17 Quality HEART score for chest pain patients History: slightly suspicious ECG: non specific repolarization disturbance/LBTB/PM Age: > 45 and < 65 years Risk factors: 1 or 2 risk factors Troponin: < or = to 1x normal limit Heart score: 3
[2025-01-18 19:15] LABS: Troponin I < 0.012 ng/mL (0.000-0.034)
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
--- OUTSIDE RECORDS SUMMARY | 2025-01-18 19:19 | XMS_ITS ---
Care Plan - [facility] Created on: January 18, 2025 FRANCISCA CONROY : 1960 Sex: Female Author Organization [facility] Address [address] [place] [address] Phone Care Team Providers Care Basketball Scout Name Role Phone Unavailable Unavailable Unavailable
--- OUTSIDE RECORDS SUMMARY | 2025-01-18 19:19 | XMS_ITS | Clinical Summary ---
Author Organization [facility] Address [address] [place] [address] Phone Care Team Providers Care Assistant Manager Airside Operations Name Role Phone Unavailable Unavailable Unavailable Reason [...] Anne Prabhakar MD ; [facility] Current Medications (continue as prescribed) Rexulti [...] 02/10/2023 5:37PM By Anne Prabhakar MD ; [facility] FLUoxetine HCl 40 MG OR CAPS 08/28/2016 Provider: SAIRA PRABHAKAR MD Diagnosis: Major depressive disorder, recurrent, unspecified 1 capsule daily Last Documented On 02/10/2023 5:37PM By Anne Prabhakar MD ; [facility] busPIRone HCl 10 MG OR TABS 08/28/2016 Provider: SAIRA PRABHAKAR MD Diagnosis: Generalized anxi ety disorder One tablet twice a day Last Documented On 02/10/2023 5:37PM By Anne Prabhakar MD ; [facility] Rexulti 1 MG OR TABS 07/03/2016 [...] Documented On 02/10/2023 5:39PM ; [facility] Note: Imported from external source. traZODone HCl Allergy chest pounding a nd severe dizziness 08/09/2015 Active Last Documented On 02/10/2023 5:39PM ; [facility] Note: Imported from external source. Sulfa Antibiotics Allergy 03/30/2014 A ctive Last Documented On 02/10/2023 5:39PM ; [facility] Note: Imported from external source. Strattera Allergy pounding chest 08/09/2015 Acti ve Last Documented On 02/10/2023 5:39PM ; [facility] Note: Imported from external source. Penicillin V Potassium Allergy 03/30/2014 Active Last Documented On 02/10/2023 5:39PM ; [facility] Note: Imported from external source. Focalin Allergy fast heart rate 05/31/2015 Act arnaud Last Documented On 02/10/2023 5:39PM ; [facility] Note: Imported from external source. Encounters Encounter Provider Location Date Check-In Time Check-Out Time Diagnosis [Patient Encounter] 01/03/2016 12:00AM 11:59PM Clinical Notes Includes: Clinical Notes from this encounter No Clinical Notes Recorded
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
--- OUTSIDE RECORDS SUMMARY | 2025-01-18 19:19 | XMS_ITS ---
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 I reviewed the risks, benefits and side effects of patient's medications Last Documented On 6 10:37AM ; [facility] Discussed calming techniques such as breathing exercises/meditation and other relaxation techniques Last Documented On 6 10:37AM ; [facility] Counseling for nutrition/guilherme ght management provided Last Documented On 6 1:41PM ; [facility] Patient education about medi cation --- I educated patient on medication(s) and diagnosis. I reviewed the risks, benefits and side effects of patient's medications Last Documented On 6 1:26PM ; [facility] Discussed calming techniques such as breathing exercises/meditation and other relaxation techniques Last Documented On 6 1:26PM ; [facility] Counseling for nutrition/guilherme ght management provided -- pt will start riding her indoor bike 10 min a day at least Last Documented On 6 2:13PM ; [facility] Patient education about medi cation --- I educated patient on medication(s) and diagnosis. I reviewed the risks, benefits and side effects of patient's medications Last Documented On 6 2:51PM ; [facility] Discussed calming techniques such as breathing exercises/meditation and other relaxation techniques Last Documented On 6 2:51PM ; [facility] Counseling for nutrition/guilherme ght management provided Last Documented On 6 5:17PM ; [facility] Patient education about medi cation --- I educated patient on medication(s) and diagnosis. I reviewed the risks, benefits and side effects of patient's medications Last Documented On 5 3:23PM ; [facility] Discussed calming techniques such as breathing exercises/meditation and other relaxation techniques Last Documented On 5 3:23PM ; [facility] Counseling for nutrition/guilherme ght management provided Last Documented On 5 9:39PM ; [facility] Patient education about medi cation --- I educated patient on medication(s) and diagnosis. I reviewed the risks, benefits and side effects of patient's medications Last Documented On 5 8:53AM ; [facility] Discussed calming techniques such as breathing exercises/meditation and other relaxation techniques Last Documented On 5 8:53AM ; [facility] Counseling for nutrition/guilherme ght management provided Last Documented On 5 7:00AM ; [facility] Discussed good sleep hygiene habits Last Documented On 5 7:00AM ; [facility] Patient education about medi cation --- I educated patient on medication(s) and diagnosis. I reviewed the risks, benefits and side effects of patient's medications Last Documented On 5 1:54PM ; [facility] Discussed calming techniques such as breathing exercises/meditation and other relaxation techniques Last Documented On 5 1:54PM ; [facility] Patient education about medi cation --- I educated patient on medication(s) and diagnosis. I reviewed the risks, benefits and side effects of patient's medications Last Documented On 5 9:49PM ; [facility] Discussed calming techniques such as breathing exercises/meditation and other relaxation techniques Last Documented On 5 3:35PM ; [facility] Counseling for nutrition/guilherme ght management provided Last Documented On 5 9:49PM ; [facility] Patient education about medi cation --- I educated patient on medication(s) and diagnosis. I reviewed the risks, benefits and side effects of patient's medications Last Documented On 5 6:33AM ; [facility] Discussed calming techniques such as breathing exercises/meditation and other relaxation techniques Last Documented On 5 3:59PM ; [facility] Counseling for nutrition/guilherme ght management provided Last Documented On 5 6:33AM ; [facility] Patient education about medi cation --- I educated patient on medication(s) and diagnosis. I reviewed the risks, benefits and side effects of patient's medications Last Documented On 4 6:47PM ; [facility] Discussed calming techniques such as breathing exercises/meditation and other relaxation techniques Last Documented On 4 10:47AM ; [facility] Counseling for nutrition/guilherme ght management provided Last Documented On 4 6:47PM ; [facility] Patient education about medi cation --- I educated patient on medication(s) and diagnosis. I reviewed the risks, benefits and side effects of patient's medications Last Documented On 4 11:50PM ; [facility] Discussed calming techniques such as breathing exercises/meditation and other relaxation techniques Last Documented On 4 9:14AM ; [facility] Patient education about medi cation --- I educated patient on medication(s) and diagnosis. I reviewed the risks, benefits and side effects of patient's medications.---continue prozac -- given by Dr. Adrian Last Documented On 4 11:04PM ; [facility] Discussed calming techniques such as breathing exercises/meditation and other relaxation techniques Last Documented On 4 3:07PM ; [facility] Counseling for nutrition/guilherme ght management provided Last Documented On 4 11:04PM ; [facility] Assessments Includes: Assessments for all patient encounters Findings Encounter Date ADHD, predominantly inattentive type GEN ERAL OFFICE VISIT with SAIRA PRABHAKAR MD 08/28/2016 Last Documented On 6 1:44PM ; [facility] Generalized anxiety disorder GENERAL OFF ICE VISIT with SAIRA PRABHAKAR MD 08/28/2016 Last Documented On 6 1:44PM ; [facility] Major depression, recurrent GENERAL OFFI CE VISIT with SAIRA PRABHAKAR MD 08/28/2016 Last Documented On 6 1:44PM ; [facility] Persistent insomnia GENERAL OFFICE VISIT with ME CAMDEN PRABHAKAR MD 08/28/2016 Last Documented On 6 1:44PM ; [facility] ADHD, predominantly inattentive type GEN ERAL OFFICE VISIT with SAIRA PRABHAKAR MD 07/03/2016 Last Documented On 6 7:30PM ; [facility] Generalized anxiety disorder GENERAL OFF ICE VISIT with SAIRA PRABHAKAR MD 07/03/2016 Last Documented On 6 7:30PM ; [facility] Major depression, recurrent GENERAL OFFI CE VISIT with SAIRA PRABHAKAR MD 07/03/2016 Last Documented On 6 7:30PM ; [facility] Persistent insomnia GENERAL OFFICE VISIT with ME CAMDEN PRABHAKAR MD 07/03/2016 Last Documented On 6 7:30PM ; [facility] ADHD, predominantly inattentive type GEN ERAL OFFICE VISIT with SAIRA PRABHAKAR MD 01/03/2016 Last Documented On 6 5:19PM ; [facility] Generalized anxiety disorder GENERAL OFF ICE VISIT with SAIRA PRABHAKAR MD 01/03/2016 Last Documented On 6 5:19PM ; [facility] Major depression, recurrent GENERAL OFFI CE VISIT with SAIRA PRABHAKAR MD 01/03/2016 Last Documented On 6 5:19PM ; [facility] Persistent insomnia GENERAL OFFICE VISIT with ME CAMDEN PRABHAKAR MD 01/03/2016 Last Documented On 6 5:19PM ; [facility] ADHD, predominantly inattentive type GEN ERAL OFFICE VISIT with SAIRA PRABHAKAR MD 10/04/2015 Last Documented On 5 11:08PM ; [facility] Generalized anxiety disorder GENERAL OFF ICE VISIT with SAIRA PRABHAKAR MD 10/04/2015 Last Documented On 5 11:08PM ; [facility] Major depression, recurrent GENERAL OFFI CE VISIT with SAIRA PRABHAKAR MD 10/04/2015 Last Documented On 5 11:08PM ; [facility] Persistent insomnia GENERAL OFFICE VISIT with ME CAMDEN PRABHAKAR MD 10/04/2015 Last Documented On 5 11:08PM ; [facility] ADHD, predominantly inattentive type GEN ERAL OFFICE VISIT with SAIRA PRABHAKAR MD 08/09/2015 Last Documented On 5 7:26AM ; [facility] Generalized anxiety disorder GENERAL OFF ICE VISIT with SAIRA PRABHAKAR MD 08/09/2015 Last Documented On 5 7:26AM ; [facility] Major depression, recurrent GENERAL OFFI CE VISIT with SAIRA PRABHAKAR MD 08/09/2015 Last Documented On 5 7:26AM ; [facility] Persistent insomnia GENERAL OFFICE VISIT with ME CAMDEN PRABHAKAR MD 08/09/2015 Last Documented On 5 7:26AM ; [facility] Persistent insomnia * PHONE CALL with SAIRA PRABHAKAR MD 07/26/2015 Last Documented On 5 2:19PM ; [facility] ADHD, predominantly inattentive type GEN ERAL OFFICE VISIT with SAIRA PRABHAKAR MD 05/31/2015 Last Documented On 5 10:27AM ; [facility] Generalized anxiety disorder GENERAL OFF ICE VISIT with SAIRA PRABHAKAR MD 05/31/2015 Last Documented On 5 10:27AM ; [facility] Major depression, recurrent GENERAL OFFI CE VISIT with SAIRA PRABHAKAR MD 05/31/2015 Last Documented On 5 10:27AM ; [facility] Persistent insomnia GENERAL OFFICE VISIT with ME CAMDEN PRABHAKAR MD 05/31/2015 Last Documented On 5 10:27AM ; [facility] ADHD, predominantly inattentive type GEN ERAL OFFICE VISIT with SAIRA PRABHAKAR MD 03/01/2015 Last Documented On 5 9:51PM ; [facility] Generalized anxiety disorder GENERAL OFF ICE VISIT with SAIRA PRABHAKAR MD 03/01/2015 Last Documented On 5 9:51PM ; [facility] Major depression, recurrent GENERAL OFFI CE VISIT with SAIRA PRABHAKAR MD 03/01/2015 Last Documented On 5 9:51PM ; [facility] Persistent insomnia GENERAL OFFICE VISIT with ME CAMDEN PRABHAKAR MD 03/01/2015 Last Documented On 5 9:51PM ; [facility] ADHD, predominantly inattentive type GEN ERAL OFFICE VISIT with SAIRA PRABHAKAR MD 02/01/2015 Last Documented On 5 6:36AM ; [facility] Generalized anxiety disorder GENERAL OFF ICE VISIT with SAIRA PRABHAKAR MD 02/01/2015 Last Documented On 5 6:36AM ; [facility] Major depression, recurrent GENERAL OFFI CE VISIT with SAIRA PRABHAKAR MD 02/01/2015 Last Documented On 5 6:36AM ; [facility] Persistent insomnia GENERAL OFFICE VISIT with ME CAMDEN PRABHAKAR MD 02/01/2015 Last Documented On 5 6:36AM ; [facility] ADHD, predominantly inattentive type GEN ERAL OFFICE VISIT with SAIRA PRABHAKAR MD 09/07/2014 Last Documented On 4 6:50PM ; [facility] Generalized anxiety disorder GENERAL OFF ICE VISIT with SAIRA PRABHAKAR MD 09/07/2014 Last Documented On 4 6:50PM ; [facility] Major depression, recurrent GENERAL OFFI CE VISIT with SAIRA PRABHAKAR MD 09/07/2014 Last Documented On 4 6:50PM ; [facility] Persistent insomnia GENERAL OFFICE VISIT with ME CAMDEN PRABHAKAR MD 09/07/2014 Last Documented On 4 6:50PM ; [facility] ADHD, predominantly inattentive type GEN ERAL OFFICE VISIT with SAIRA PRABHAKAR MD 05/05/2014 Last Documented On 4 11:50PM ; [facility] Generalized anxiety disorder GENERAL OFF ICE VISIT with SAIRA PRABHAKAR MD 05/05/2014 Last Documented On 4 11:50PM ; [facility] Major depression, recurrent GENERAL OFFI CE VISIT with SAIRA PRABHAKAR MD 05/05/2014 Last Documented On 4 11:50PM ; [facility] Persistent insomnia GENERAL OFFICE VISIT with ME CAMDEN PRABHAKAR MD 05/05/2014 Last Documented On 4 11:50PM ; [facility] ADHD, predominantly inattentive type NEW PATIENT VISIT with SAIRA PRABHAKAR MD 03/30/2014 Last Documented On 4 11:05PM ; [facility] Generalized anxiety disorder NEW PATIENT VISIT w ith SAIRA PRABHAKAR MD 03/30/2014 Last Documented On 4 11:05PM ; [facility] Major depression, recurrent NEW PATIENT VISIT wi th SAIRA PRABHAKAR MD 03/30/2014 Last Documented On 4 11:05PM ; [facility] Persistent insomnia NEW PATIENT VISIT with SUMANTH PRABHAKAR MD 03/30/2014 Last Documented On 4 11:05PM ; [facility] Instructions Includes: Instructions for all patient encounters Education and Decision Aids were provided during visit for: Patient education about medi cation --- I educated patient on medication(s) and diagnosis. I reviewed the risks, benefits and side effects of patient's medications Last Documented On 6 10:37AM ; [facility] Discussed calming techniques such as breathing exercises/meditation and other relaxation techniques Last Documented On 6 10:37AM ; [facility] Counseling for nutrition/guilherme ght management provided Last Documented On 6 1:41PM ; [facility] Patient education about medi cation --- I educated patient on medication(s) and diagnosis. I reviewed the risks, benefits and side effects of patient's medications Last Documented On 6 1:26PM ; [facility] Discussed calming techniques such as breathing exercises/meditation and other relaxation techniques Last Documented On 6 1:26PM ; [facility] Counseling for nutrition/guilherme ght management provided -- pt will start riding her indoor bike 10 min a day at least Last Documented On 6 2:13PM ; [facility] Patient education about medi cation --- I educated patient on medication(s) and diagnosis. I reviewed the risks, benefits and side effects of patient's medications Last Documented On 6 2:51PM ; [facility] Discussed calming techniques such as breathing exercises/meditation and other relaxation techniques Last Documented On 6 2:51PM ; [facility] Counseling for nutrition/guilherme ght management provided Last Documented On 6 5:17PM ; [facility] Patient education about medi cation --- I educated patient on medication(s) and diagnosis. I reviewed the risks, benefits and side effects of patient's medications Last Documented On 5 3:23PM ; [facility] Discussed calming techniques such as breathing exercises/meditation and other relaxation techniques Last Documented On 5 3:23PM ; [facility] Counseling for nutrition/guilherme ght management provided Last Documented On 5 9:39PM ; [facility] Patient education about medi cation --- I educated patient on medication(s) and diagnosis. I reviewed the risks, benefits and side effects of patient's medications Last Documented On 5 8:53AM ; [facility] Discussed calming techniques such as breathing exercises/meditation and other relaxation techniques Last Documented On 5 8:53AM ; [facility] Counseling for nutrition/guilherme ght management provided Last Documented On 5 7:00AM ; [facility] Discussed good sleep hygiene habits Last Documented On 5 7:00AM ; [facility] Patient education about medi cation --- I educated patient on medication(s) and diagnosis. I reviewed the risks, benefits and side effects of patient's medications Last Documented On 5 1:54PM ; [facility] Discussed calming techniques such as breathing exercises/meditation and other relaxation techniques Last Documented On 5 1:54PM ; [facility] Patient education about medi cation --- I educated patient on medication(s) and diagnosis. I reviewed the risks, benefits and side effects of patient's medications Last Documented On 5 9:49PM ; [facility] Discussed calming techniques such as breathing exercises/meditation and other relaxation techniques Last Documented On 5 3:35PM ; [facility] Counseling for nutrition/guilherme ght management provided Last Documented On 5 9:49PM ; [facility] Patient education about medi cation --- I educated patient on medication(s) and diagnosis. I reviewed the risks, benefits and side effects of patient's medications Last Documented On 5 6:33AM ; [facility] Discussed calming techniques such as breathing exercises/meditation and other relaxation techniques Last Documented On 5 3:59PM ; [facility] Counseling for nutrition/guilherme ght management provided Last Documented On 5 6:33AM ; [facility] Patient education about medi cation --- I educated patient on medication(s) and diagnosis. I reviewed the risks, benefits and side effects of patient's medications Last Documented On 4 6:47PM ; [facility] Discussed calming techniques such as breathing exercises/meditation and other relaxation techniques Last Documented On 4 10:47AM ; [facility] Counseling for nutrition/guilherme ght management provided Last Documented On 4 6:47PM ; [facility] Patient education about medi cation --- I educated patient on medication(s) and diagnosis. I reviewed the risks, benefits and side effects of patient's medications Last Documented On 4 11:50PM ; [facility] Discussed calming techniques such as breathing exercises/meditation and other relaxation techniques Last Documented On 4 9:14AM ; [facility] Patient education about medi cation --- I educated patient on medication(s) and diagnosis. I reviewed the risks, benefits and side effects of patient's medications.---continue prozac -- given by Dr. Adrian Last Documented On 4 11:04PM ; [facility] Discussed calming techniques such as breathing exercises/meditation and other relaxation techniques Last Documented On 4 3:07PM ; [facility] Counseling for nutrition/guilherme ght management provided Last Documented On 4 11:04PM ; [facility] Medical Equipment - Implanted Devices Includes: Current and historical Devices No Medical Equipment Recorded Medications Includes: Current and historical Medications Current Medications (continue as prescribed) Rexulti 1 MG Tablet 08/28/2016 Provider: SAIRA PRABHAKAR MD Diagnosis: Major depressive disorder, recurrent, unspecified One tablet daily -- has 30 d ay free voucher given 08/28/16 Last Documented On 6 11:18AM By Anne Prabhakar MD ; [facility] BusPIRone HCl 10 MG Tablet 08/28/2016 Provider: SAIRA PRABHAKAR MD Diagnosis: Generalized anxi ety disorder One tablet twice a day Last Documented On 6 11:18AM By Anne Prabhakar MD ; [facility] FLUoxetine HCl 40 MG Capsule, conventional 08/28/2016 Provider: SAIRA Murray MD Diagnosis: Major depressive disorder, recurrent, unspecified 1 capsule daily Last Documented On 6 11:18AM By Anne Prabhakar MD ; [facility] Rexulti 1 MG Tablet 08/28/2016 Provider: SAIRA PRABHAKAR MD Diagnosis: Major depressive disorder, recurrent, unspecified One tablet daily -- given 2 months samples on 08/28/16 Last Documented On 6 11:22AM By Anne Prabhakar MD ; [facility] Rexulti 1 MG Tablet 07/03/2016 Provider: SAIRA PRABHAKAR MD Diagnosis: Major depressive disorder, recurrent, unspecified One tablet daily Last Documented On 07/03/2016 2:08PM By Anne Prabhakar MD ; [facility] Levothyroxine Sodium 75 MCG OR TABS 03/30/2014 Provi good: Diagnosis: one tablet daily Last Documented On 4 2:51PM By LUIZ RUDD ; [facility] Past Medications on file Rexulti 1 [...] 6 10:35AM By NIKKI COOL LPN ; [facility] FLUoxetine HCl 40 MG Capsule, conventional 07/03/2016 - 08/28/2016 Provider: SAIRA PRABHAKAR MD Diagnosis: Major depressive disorder, recurrent, unspecified 1 capsule daily Last Documented On 6 11:18AM By Anne Prabhakar MD ; [facility] BusPIRone HCl 10 MG Tablet 07/03/2016 - 08/28/2016 Provider: SAIRA PRABHAKAR MD Diagnosis: Generalized anxi ety disorder One tablet twice a day Last Documented On 6 11:18AM By Anne Prabhakar MD ; [facility] FLUoxetine HCl 40 MG Capsule, conventional 01/03/2016 - 07/03/2016 Provider: SAIRA PRABHAKAR MD Diagnosis: Major depressive disorder, recurrent, unspecified 1 capsule daily Last Documented On 07/03/2016 2:08PM By Anne Prabhakar MD ; [facility] BusPIRone HCl 10 MG Tablet 01/03/2016 - 07/03/2016 Provider: SAIRA PRABHAKAR MD Diagnosis: Generalized anxi ety disorder One tablet twice a day Last Documented On 07/03/2016 2:08PM By Anne Prabhakar MD ; [facility] Vyvanse 20 MG Capsule, conventional 10/04/2015 - 01/03/2016 Provider: SAIRA PRABHAKAR MD Diagnosis: Attn-defct hyper activity disorder, predom inattentive type 1 Capsule every morning Last Documented On 01/03/2016 3:45PM By Anne Prabhakar MD ; [facility] BusPIRone HCl 10 MG Tablet 10/04/2015 - 01/03/2016 Provider: SAIRA PRABHAKAR MD Diagnosis: Generalized anxi ety disorder One tablet twice a day Last Documented On 01/03/2016 3:36PM By Anne Prabhakar MD ; [facility] FLUoxetine HCl 40 MG Capsule, conventional 10/04/2015 - 01/03/2016 Provider: SAIRA PRABHAKAR MD Diagnosis: Major depressive disorder, recurrent, unspecified 1 capsule daily Last Documented On 01/03/2016 3:36PM By Anne Prabhakar MD ; [facility] Doxepin HCl 10 MG Capsule, conventional 09/14/2015 - 08/28/2016 Provider: SAIRA PRABHAKAR MD Diagnosis: Psychophysiologi c insomnia Take 1 capsule by mouth at bedtime Last Documented On 6 11:07AM By Anne Prbahakar MD ; [facility] Vyvanse 20 MG Capsule 08/09/2015 - 10/04/2015 Provider: SAIRA PRABHAKAR MD Diagnosis: Attn-defct hyper activity disorder, predom inattentive type 1 Capsule every morning Last Documented On 10/04/2015 4:10PM By Anne Prabhakar MD ; [facility] Silenor 3 MG Tablet 08/09/2015 - 10/04/2015 Provider: SAIRA PRABHAKAR MD Diagnosis: Insomnia, unspec ified as directed -- 3 mg --1 or 2 at bedtime as needed for sleep Last Documented On 10/04/2015 3:59PM By Anne Prabhakar MD ; [facility] Silenor 6 MG Tablet 08/09/2015 - 10/04/2015 Provider: SAIRA PRABHAKAR MD Diagnosis: Insomnia, unspec ified One tablet at bed time Last Documented On 10/04/2015 3:58PM By Anne Prabhakar MD ; [facility] BusPIRone HCl 10 MG Tablet 08/09/2015 - 10/04/2015 Provider: SAIRA PRABHAKAR MD Diagnosis: Generalized anxi ety disorder One tablet twice a day Last Documented On 10/04/2015 4:10PM By Anne Prabhakar MD ; [facility] FLUoxetine HCl 40 MG Capsule 08/09/2015 - 10/04/2015 Provider: SAIRA PRABHAKAR MD Diagnosis: Major depressive disorder, recurrent, unspecified 1 capsule daily Last Documented On 10/04/2015 4:10PM By Anne Prabhakar MD ; [facility] Ambien 10 MG Tablet 07/26/2015 - 08/09/2015 Provider: SAIRA PRABHAKAR MD Diagnosis: Insomnia, unspec ified One tablet at bed time as needed for sleep Last Documented On 5 8:54AM By NIKKI COOL LPN ; [facility] Strattera 40 MG Capsule 05/31/2015 - 08/09/2015 Provider: SAIRA PRABHAKAR MD Diagnosis: ATTN DEFIC NONHY PERACT as directed -- 25 mg in am f or 1 week then 40 mg in am for 1 month then 60 mg in am Last Documented On 5 8:55AM By NIKKI COOL LPN ; [facility] TraZODone HCl 50 MG Tablet 05/31/2015 - 08/09/2015 Provider: SAIRA SIEGEL MD Diagnosis: PERSISTENT INSOM JOCELYN One tablet at bed time as needed for sleep Last Documented On 5 8:55AM By NIKKI COOL LPN ; [facility] FLUoxetine HCl 40 MG Capsule 05/31/2015 - 08/09/2015 Provider: SAIRA PRABHAKAR MD Diagnosis: MAJOR DEPRESSION DISORDER/RECURRENT 1 capsule daily Last Documented On 08/09/2015 9:23AM By Anne Prabhakar MD ; [facility] BusPIRone HCl 10 MG Tablet 05/31/2015 - 08/09/2015 Provider: SAIRA PRABHAKAR MD Diagnosis: GENERALIZED ANXI ETY DIS One tablet twice a day Last Documented On 08/09/2015 9:23AM By Anne Prabhakar MD ; [facility] BusPIRone HCl 10 MG Tablet 03/31/2015 - 05/31/2015 Provider: SAIRA PRABHAKAR MD Diagnosis: GENERALIZED ANXI ETY DIS One tablet twice a day Last Documented On 05/31/2015 2:34PM By Anne Prabhakar MD ; [facility] FLUoxetine HCl 40 MG Capsule, conventional 03/01/2015 - 05/31/2015 Provider: SAIRA PRABHAKAR MD Diagnosis: MAJOR DEPRESSION DISORDER/RECURRENT 1 capsule daily Last Documented On 05/31/2015 2:34PM By Anne Prabhakar MD ; [facility] Focalin XR 10 MG Capsule, extended-release 24 hour 03/01/2015 - 10/28/2014 Provider: SAIRA PRABHAKAR MD Diagnosis: ATTN DEFIC NONHYPERACT 1 Capsule every morning Last Documented On 5 2:05PM By NIKKI COOL LPN ; [facility] TraZODone HCl 50 MG Tablet 03/01/2015 - 05/31/2015 Provider: SAIRA SIEGEL MD Diagnosis: PERSISTENT INSOM JOCELYN One tablet at bed time as needed for sleep Last Documented On 05/31/2015 2:34PM By Anne Prabhakar MD ; [facility] BusPIRone HCl 10 MG Tablet 03/01/2015 - 03/31/2015 Provider: SAIRA PRABHAKAR MD Diagnosis: GENERALIZED ANXI ETY DIS One tablet twice a day Last Documented On 03/31/2015 6:38PM By Anne Prabhakar MD ; [facility] TraZODone HCl 50 MG Tablet 02/02/2015 - 03/01/2015 Provider: SAIRA SIEGEL MD Diagnosis: PERSISTENT INSOM JOCELYN One tablet at bed time as needed for sleep Last Documented On 03/01/2015 3:52PM By Anne Prabhakar MD ; [facility] BusPIRone HCl 10 MG Tablet 02/02/2015 - 03/01/2015 Provider: SAIRA PRABHAKAR MD Diagnosis: GENERALIZED ANXI ETY DIS One tablet twice a day Last Documented On 03/01/2015 3:52PM By Anne Prabhakar MD ; [facility] Focalin XR 10 MG Capsule, extended-release 24 hour 02/01/2015 - 03/01/2015 Provider: SAIRA PRABHAKAR MD Diagnosis: ATTN DEFIC NONHYPERACT 1 Capsule every morning Last Documented On 03/01/2015 3:52PM By Anne Prabhakar MD ; [facility] FLUoxetine HCl 40 MG Capsule, conventional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
--- OUTSIDE RECORDS SUMMARY | 2025-01-18 19:19 | XMS_ITS | Clinical Summary ---
Author Organization [facility] Address [address] [place] [address] Phone Care Team Providers Care Nib Adjuster Name Role Phone Unavailable Unavailable Unavailable Reason for Visit and Chief Complaint [Patient Encounter] Problems Includes: Problems addressed during this encounter and other active Problems All Visits Onset Date Resolved Date Provider Condition S tatus Generalized Anxiety Disorder 03/30/2014 Active Last Documented On 3 5:47PM ; [facility] Major Depression, Recurrent 03/30/2014 Active [...] 02/10/2023 5:37PM By Anne Prabhakar MD ; [facility] Silenor 6 MG OR TABS Provider: SAIRA PRABHAKAR MD Diagnosis: Insomnia, unspec ified Last Documented On 02/10/2023 5:37PM By Anne Prabhakar MD ; [facility] Current Medications (continue as prescribed) Rexulti 1 MG OR TABS 08/28/2016 Provider: SAIRA PRABHAKAR MD Diagnosis: Major depressive disorder, recurrent, unspecified One tablet daily -- has 30 d ay free voucher given 08/28/16 Last Documented On 02/10/2023 5:37PM By Anne Prabhakar MD ; [facility] Rexulti 1 MG [...] On 02/10/2023 5:37PM By LUIZ RUDD ; [facility] Medications Administered Includes: Administered Medications [...] 1.9 Last Documented: On 02/10/2023 5:54PM ; [facility] Results Includes: Results discussed during this [...] Active Last Documented On 02/10/2023 5:39PM ; [facility] Note: Imported from external source. traZODone HCl Allergy chest pounding a nd severe dizziness 08/09/2015 Active Last Documented On 02/10/2023 5:39PM ; [facility] Note: Imported from external source. Sulfa Antibiotics Allergy 03/30/2014 A ctive Last Documented On 02/10/2023 5:39PM ; [facility] Note: Imported from external source. Strattera Allergy pounding chest 08/09/2015 Acti ve Last Documented On 02/10/2023 5:39PM ; [facility] Note: Imported from external source. Penicillin V Potassium Allergy 03/30/2014 Active Last Documented On 02/10/2023 5:39PM ; [facility] Note: Imported from external source. Focalin Allergy fast heart rate 05/31/2015 Act arnaud Last Documented On 02/10/2023 5:39PM ; [facility] Note: Imported from external source. Encounters Encounter Provider Location Date Check-In Time Check-Out Time Diagnosis [Patient Encounter] 10/04/2015 12:00AM 11:59PM Clinical Notes Includes: Clinical Notes from this encounter No Clinical Notes Recorded
--- OUTSIDE RECORDS SUMMARY | 2025-01-18 19:19 | XMS_ITS | Clinical Summary ---
Author Organization [facility] Address [address] [place] [address] Phone Care Team Providers Care Heading And Priming Operator Name Role Phone Unavailable Unavailable Unavailable Reason for Visit and Chief Complaint [Patient Encounter] Problems Includes: Problems addressed during this encounter and other active Problems All Visits Onset Date Resolved Date Provider Condition S tatus Generalized Anxiety Disorder 03/30/2014 Active Last Documented On 3 5:47PM ; [facility] Major Depression, Recurrent 03/30/2014 Active Last Documented On 3 5:47PM ; [facility] Adhd, 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 Last Documented On 3 5:47PM ; [facility] Persistent Insomnia 03/18/2014 Activ e Last Documented On 3 5:47PM ; [facility] Plan of Treatment No Plan of [...] 02/10/2023 5:37PM By Anne Prabhakar MD ; [facility] Strattera 40 MG OR CAPS Provider: [facility] PRABHAKAR MD Diagnosis: ATTN DEFIC NONHY PERACT Last Documented On 02/10/2023 5:37PM By Anne Prabhakar MD ; [facility] traZODone HCl 50 MG OR TABS Provider: SAIRA PRABHAKAR MD Diagnosis: PERSISTENT INSOM JOCELYN Last Documented On 02/10/2023 5:37PM By Anne Prabhakar MD ; [facility] Current Medications (continue as prescribed) Rexulti 1 MG OR TABS 08/28/2016 Provider: SAIRA PRABHAKAR MD Diagnosis: Major depressive disorder, recurrent, unspecified One tablet daily -- has 30 d ay free voucher given 08/28/16 Last Documented On 02/10/2023 5:37PM By Anne Prabhakar MD ; [facility] Rexulti 1 MG OR TABS 08/28/2016 Provider: SAIRA PRABHAKAR MD Diagnosis: Major depressive disorder, recurrent, unspecified One tablet daily -- given 2 months samples on 08/28/16 Last Documented On 02/10/2023 5:37PM By Anne Prabhakar MD ; [facility] FLUoxetine HCl 40 MG OR CAPS 08/28/2016 Provider: SAIRA PRABHAKAR MD Diagnosis: Major depressive disorder, recurrent, unspecified 1 capsule daily Last Documented On 02/10/2023 5:37PM By Anne Prabhakar MD ; [facility] busPIRone HCl 10 MG OR TABS 08/28/2016 Provider: SAIRA PRABHAKAR MD Diagnosis: Generalized anxi ety disorder One tablet twice a day Last Documented On 02/10/2023 5:37PM By Anne Prabhakar MD ; [facility] Rexulti 1 MG OR TABS 07/03/2016 Provider: SAIRA PRABHAKAR MD Diagnosis: Major depressive disorder, recurrent, unspecified One tablet daily Last Documented On 02/10/2023 5:37PM By Anne Prabhakar MD ; [facility] Levothyroxine Sodium 75 MCG OR TABS 03/30/2014 Provi good: Diagnosis: one tablet daily Last Documented On 02/10/2023 5:37PM By LUIZ RUDD ; [facility] Medications Administered Includes: Administered Medications [...] 1.9 Last Documented: On 02/10/2023 5:54PM ; [facility] Results Includes: Results discussed during this [...]
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
--- OUTSIDE RECORDS SUMMARY | 2025-01-18 19:20 | XMS_ITS | Clinical Summary ---
Author Organization [facility] Address [address] [place] [address] Phone Care Team Providers Care Honing Machine Operator Production Name Role Phone Unavailable Unavailable Unavailable Reason for Visit and Chief Complaint [Patient Encounter] Problems Includes: Problems addressed during this encounter and other active Problems All Visits Onset Date Resolved Date Provider Condition S tatus Generalized Anxiety Disorder 03/30/2014 Active Last Documented On 3 5:47PM ; [facility] Major Depression, Recurrent 03/30/2014 Active Last Documented On 3 5:47PM ; [facility] Adhd, 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 Last Documented On 3 5:47PM ; [facility] Persistent Insomnia 03/18/2014 Activ e Last Documented On 3 5:47PM ; [facility] Plan of Treatment No Plan of Treatment Recorded Assessments Includes: Assessments from this encounter No Assessments Recorded Medical Equipment - Implanted Devices Includes: Current Devices No Medical Equipment Recorded Medications Includes: Medications discussed during this encounter and other current Medications Discontinued / Stopped on this date SAIRA PRABHAKAR MD on 07/03/2016 Rexulti 1 MG OR TABS Provider: SARIA PRABHAKAR MD Diagnosis: Major depressive disorder, recurrent, moderate Last Documented On 02/10/2023 5:37PM By Anne Prabhakar MD ; [facility] Doxepin HCl 10 MG OR CAPS Provider: Diagnosis: Psychophysiologi c insomnia Last Documented On 02/10/2023 5:37PM By NIKKI COOL LPN ; [facility] Current Medications (continue as prescribed) Rexulti 1 MG OR TABS 08/28/2016 Provider: SAIRA PRABHAKAR MD Diagnosis: Major depressive disorder, recurrent, unspecified One tablet daily -- has 30 d ay free voucher given 08/28/16 Last Documented On 02/10/2023 5:37PM By Anne Prabhakar MD ; [facility] Rexulti 1 MG OR TABS 08/28/2016 Provider: SAIRA PRABHAKAR MD Diagnosis: Major depressive disorder, recurrent, unspecified One tablet daily -- given 2 months samples on 08/28/16 Last Documented On 02/10/2023 5:37PM By Anne Prabhakar MD ; [facility] FLUoxetine HCl 40 MG OR CAPS 08/28/2016 Provider: SAIRA PRABHAKAR MD Diagnosis: Major depressive disorder, recurrent, unspecified 1 capsule daily Last Documented On 02/10/2023 5:37PM By Anne Prabhakar MD ; [facility] busPIRone HCl 10 MG OR TABS 08/28/2016 Provider: SAIRA PRABHAKAR MD Diagnosis: Generalized anxi ety disorder One tablet twice a day Last Documented On 02/10/2023 5:37PM By Anne Prabhakar MD ; [facility] Rexulti 1 MG OR TABS 07/03/2016 Provider: SAIRA PRABHAKAR MD Diagnosis: Major depressive disorder, recurrent, unspecified One tablet daily Last Documented On 02/10/2023 5:37PM By Anne Prabhakar MD ; [facility] Levothyroxine Sodium 75 MCG OR TABS 03/30/2014 Provi good: Diagnosis: one tablet daily Last Documented On 02/10/2023 5:37PM By LUIZ RUDD ; [facility] Medications Administered Includes: Administered Medications from this encounter No Administered Medications Recorded Vital Signs Includes: Vital Signs from this encounter Vital Name 08/28/2016 10:38A Blood Pressure Sitting (mmHg) 134/72 BP Cuff Size Regular Pulse Rate-Sitting (bpm) 76 Pulse Rhythm Regular Height (in) 63 Weight (lb) 206 Body Mass Index (kg/m2) 36.5 Body Surface Area (m2) 2.0 Last Documented: On 02/10/2023 5:54PM ; [facility] Results Includes: Results discussed during this [...]
--- OUTSIDE RECORDS SUMMARY | 2025-01-18 19:20 | XMS_ITS | Clinical Summary ---
Author Organization [facility] Address [address] [place] [address] Phone Care Team Providers Care Mail Processing Machine Operator Name Role Phone Unavailable Unavailable Unavailable Reason for Visit and Chief Complaint [Patient Encounter] Problems Includes: Problems addressed during this encounter and other active Problems All Visits Onset Date Resolved Date Provider Condition S tatus Generalized Anxiety Disorder 03/30/2014 Active Last Documented On 3 5:47PM ; [facility] Major Depression, Recurrent 03/30/2014 Active Last Documented On 3 5:47PM ; [facility] Adhd, 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 Last Documented On 3 5:47PM ; [facility] Persistent Insomnia 03/18/2014 Activ e Last Documented On 3 5:47PM ; [facility] Plan of Treatment No Plan of [...] 02/10/2023 5:37PM By Anne Prabhakar MD ; [facility] Rexulti 1 MG OR TABS 08/28/2016 [...] 02/10/2023 5:37PM By Anne Prabhakar MD ; [facility] busPIRone HCl 10 MG OR TABS 08/28/2016 Provider: SAIRA PRABHAKAR MD Diagnosis: Generalized anxi ety disorder One tablet twice a day Last Documented On 02/10/2023 5:37PM By Anne Prabhakar MD ; [facility] Rexulti 1 MG OR TABS 07/03/2016 Provider: SAIRA PRABHAKAR MD Diagnosis: Major depressive disorder, recurrent, unspecified One tablet daily Last Documented On 02/10/2023 5:37PM By Anne Prabhakar MD ; [facility] Levothyroxine Sodium 75 MCG OR TABS 03/30/2014 Provi good: Diagnosis: one tablet daily Last Documented On 02/10/2023 5:37PM By LUIZ RUDD ; [facility] Medications Administered Includes: Administered Medications from this encounter No Administered Medications Recorded Vital Signs Includes: Vital Signs from this encounter Vital Name 07/03/2016 01:37P Blood Pressure Sitting (mmHg) 124/76 BP Cuff Size Large Pulse Rate-Sitting (bpm) 72 Pulse Rhythm Regular Height (in) 63 Weight (lb) 200 Body Mass Index (kg/m2) 35.4 Body Surface Area (m2) 1.9 Last Documented: On 02/10/2023 5:54PM ; [facility] Results Includes: Results discussed during this [...] Documented On 02/10/2023 5:39PM ; [facility] Note: Imported from external source. traZODone HCl Allergy chest pounding a nd severe dizziness 08/09/2015 Active Last Documented On 02/10/2023 5:39PM ; [facility] Note: Imported from external source. Sulfa Antibiotics Allergy 03/30/2014 A ctive Last Documented On 02/10/2023 5:39PM ; [facility] Note: Imported from external source. Strattera Allergy pounding chest 08/09/2015 Acti ve Last Documented On 02/10/2023 5:39PM ; [facility] Note: Imported from external source. Penicillin V Potassium Allergy 03/30/2014 Active Last Documented On 02/10/2023 5:39PM ; [facility] Note: Imported from external source. Focalin Allergy fast heart rate 05/31/2015 Act arnaud Last Documented On 02/10/2023 5:39PM ; [facility] Note: Imported from external source. Encounters Encounter Provider Location Date Check-In Time Check-Out Time Diagnosis [Patient Encounter] 07/03/2016 12:00AM 11:59PM Clinical Notes Includes: Clinical Notes from this encounter No Clinical Notes Recorded
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
--- OUTSIDE RECORDS SUMMARY | 2025-01-18 19:20 | XMS_ITS ---
Care Plan - [facility] Created on: January 18, 2025 PURVIRONAL FRANCISCA A : 1960 Sex: Female Author Organization [facility] Address [address] [place] [address] Phone Care Team Providers Care Tuft Machine Operator Name Role Phone SAIRA MYRICK MD Unavailable [phone]
--- OUTSIDE RECORDS SUMMARY | 2025-01-18 19:21 | XMS_ITS ---
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 Last Documented On 3 5:47PM ; [facility] Persistent Insomnia 03/18/2014 Activ e Last Documented On 3 5:47PM ; [facility] Plan of Treatment No Plan [...] By Anne Prabhakar MD ; [facility] Rexulti 1 MG OR TABS 08/28/2016 Provider: SAIRA PRABHAKAR MD Diagnosis: Major depressive disorder, recurrent, unspecified One tablet daily -- given 2 months samples on 08/28/16 Last Documented On 02/10/2023 5:37PM By Anne Prabhakar MD ; [facility] FLUoxetine HCl 40 MG OR CAPS 08/28/2016 Provider: SAIRA PRABHAKAR MD Diagnosis: Major depressive disorder, recurrent, unspecified 1 capsule daily Last Documented On 02/10/2023 5:37PM By Anne Prabhakar MD ; [facility] busPIRone HCl 10 MG OR TABS 08/28/2016 Provider: SAIRA PRABHAKAR MD Diagnosis: Generalized anxi ety disorder One tablet twice a day Last Documented On 02/10/2023 5:37PM By Anne Prabhakar MD ; [facility] Rexulti 1 MG OR TABS 07/03/2016 Provider: SAIRA PRABHAKAR MD Diagnosis: Major depressive disorder, recurrent, unspecified One tablet daily Last Documented On 02/10/2023 5:37PM By Anne Prabhakar MD ; [facility] Levothyroxine Sodium 75 MCG OR TABS 03/30/2014 Provi good: Diagnosis: one tablet daily Last Documented On 02/10/2023 5:37PM By LUIZ RUDD ; [facility] Past Medications on file busPIRone HCl 10 MG OR TABS 07/03/2016 - 08/28/2016 Provider: SAIRA PRABHAKAR MD Diagnosis: Generalized anxi ety disorder One tablet twice a day Last Documented On 02/10/2023 5:37PM By Anne Prabhakar MD ; [facility] FLUoxetine HCl 40 MG OR CAPS 07/03/2016 - 08/28/2016 Provider: SAIRA PRABHAKAR MD Diagnosis: Major depressive disorder, recurrent, unspecified 1 capsule daily Last Documented On 02/10/2023 5:37PM By Anne Prabhakar MD ; [facility] Rexulti 1 MG OR TABS 07/03/2016 [...] 02/10/2023 5:37PM By Anne Prabhakar MD ; [facility] busPIRone HCl 10 MG OR TABS 01/03/2016 - 07/03/2016 Provider: SAIRA PRABHAKAR MD Diagnosis: Generalized anxi ety disorder One tablet twice a day Last Documented On 02/10/2023 5:37PM By Anne Prabhakar MD ; [facility] FLUoxetine HCl 40 MG OR CAPS 01/03/2016 - 07/03/2016 Provider: SAIRA PRABHAKAR MD Diagnosis: Major depressive disorder, recurrent, unspecified 1 capsule daily Last Documented On 02/10/2023 5:37PM By Anne Prabhakar MD ; [facility] FLUoxetine HCl 40 MG OR CAPS 10/04/2015 - 01/03/2016 Provider: SAIRA PRABHAKAR MD Diagnosis: Major depressive disorder, recurrent, unspecified 1 capsule daily Last Documented On 02/10/2023 5:37PM By Anne Prabhakar MD ; [facility] Vyvanse 20 MG OR CAPS 10/04/2015 - 01/03/2016 Provider: SAIRA PRABHAKAR MD Diagnosis: Attn-defct hyper activity disorder, predom inattentive type 1 Capsule every morning Last Documented On 02/10/2023 5:37PM By Anne Prabhakar MD ; [facility] busPIRone HCl 10 MG OR TABS 10/04/2015 - 01/03/2016 Provider: SAIRA PRABHAKAR MD Diagnosis: Generalized anxi ety disorder One tablet twice a day Last Documented On 02/10/2023 5:37PM By Anne Prabhakar MD ; [facility] Doxepin HCl 10 MG OR CAPS 09/14/2015 - 08/28/2016 Prov ider: Diagnosis: Psychophysiologi c insomnia Take 1 capsule by mouth at bedtime Last Documented On 02/10/2023 5:37PM By NIKKI COOL LPN ; [facility] busPIRone HCl 10 MG OR TABS 08/09/2015 - 10/04/2015 Provider: SAIRA PRABHAKAR MD Diagnosis: Generalized anxi ety disorder One tablet twice a day Last Documented On 02/10/2023 5:37PM By Anne Prabhakar MD ; [facility] Vyvanse 20 MG OR CAPS 08/09/2015 - 10/04/2015 Provider: SAIRA PRABHAKAR MD Diagnosis: Attn-defct hyper activity disorder, predom inattentive type 1 Capsule every morning Last Documented On 02/10/2023 5:37PM By Anne Prabhakar MD ; [facility] Silenor 3 MG OR TABS 08/09/2015 - 10/04/2015 Provider: SAIRA PRABHAKAR MD Diagnosis: Insomnia, unspec ified as directed -- 3 mg --1 or 2 at bedtime as needed for sleep Last Documented On 02/10/2023 5:37PM By Anne Prabhakar MD ; [facility] Silenor 6 MG OR TABS 08/09/2015 - 10/04/2015 Provider: SAIRA PRABHAKAR MD Diagnosis: Insomnia, unspec ified One tablet at bed time Last Documented On 02/10/2023 5:37PM By Anne Prabhakar MD ; [facility] FLUoxetine HCl 40 MG OR CAPS 08/09/2015 - 10/04/2015 Provider: SAIRA PRABHAKAR MD Diagnosis: Major depressive disorder, recurrent, unspecified 1 capsule daily Last Documented On 02/10/2023 5:37PM By Anne Prabhakar MD ; [facility] Ambien 10 MG OR TABS 07/26/2015 - 08/09/2015 Provider: SAIRA PRABHAKAR MD Diagnosis: Insomnia, unspec ified One tablet at bed time as needed for sleep Last Documented On 02/10/2023 5:37PM By Anne Prabhakar MD ; [facility] FLUoxetine HCl 40 MG OR CAPS 05/31/2015 - 08/09/2015 Provider: SAIRA PRABHAKAR MD Diagnosis: MAJOR DEPRESSION DISORDER/RECURRENT 1 capsule daily Last Documented On 02/10/2023 5:37PM By Anne Prabhakar MD ; [facility] Strattera 40 MG OR CAPS 05/31/2015 - 08/09/2015 Provider: SAIRA PRABHAKAR MD Diagnosis: ATTN DEFIC NONHY PERACT as directed -- 25 mg in am f or 1 week then 40 mg in am for 1 month then 60 mg in am Last Documented On 02/10/2023 5:37PM By Anne Prabhakar MD ; [facility] busPIRone HCl 10 MG OR TABS 05/31/2015 - 08/09/2015 Provider: SAIRA PRABHAKAR MD Diagnosis: GENERALIZED ANXI ETY DIS One tablet twice a day Last Documented On 02/10/2023 5:37PM By Anne Prabhakar MD ; [facility] traZODone HCl 50 MG OR TABS 05/31/2015 - 08/09/2015 Provider: SAIRA SIEGEL MD Diagnosis: PERSISTENT INSOM JOCELYN One tablet at bed time as needed for sleep Last Documented On 02/10/2023 5:37PM By Anne Prabhakar MD ; [facility] busPIRone HCl 10 MG OR TABS 03/31/2015 - 05/31/2015 Provider: SAIRA PRABHAKAR MD Diagnosis: GENERALIZED ANXI ETY DIS One tablet twice a day Last Documented On 02/10/2023 5:37PM By Anne Prabhakar MD ; [facility] FLUoxetine HCl 40 MG OR CAPS 03/01/2015 - 05/31/2015 Provider: SAIRA PRABHAKAR MD Diagnosis: MAJOR DEPRESSION DISORDER/RECURRENT 1 capsule daily Last Documented On 02/10/2023 5:37PM By Anne Prabhakar MD ; [facility] busPIRone HCl 10 MG OR TABS 03/01/2015 - 03/31/2015 Provider: SAIRA PRABHAKAR MD Diagnosis: GENERALIZED ANXI ETY DIS One tablet twice a day Last Documented On 02/10/2023 5:37PM By Anne Prabhakar MD ; [facility] traZODone HCl 50 MG OR TABS 03/01/2015 - 05/31/2015 Provider: SAIRA SIEGEL MD Diagnosis: PERSISTENT INSOM JOCELYN One tablet at bed time as needed for sleep Last Documented On 02/10/2023 5:37PM By Anne Prabhakar MD ; [facility] Focalin XR 10 MG OR CP24 03/01/2015 - 10/28/2014 Provider: SAIRA SIEGEL MD Diagnosis: ATTN DEFIC NONHY PERACT 1 Capsule every morning Last Documented On 02/10/2023 5:37PM By Anne Prabhakar MD ; [facility] traZODone HCl 50 MG OR TABS 02/02/2015 - 03/01/2015 Provider: SAIRA SIEGEL MD Diagnosis: PERSISTENT INSOM JOCELYN One tablet at bed time as needed for sleep Last Documented On 02/10/2023 5:37PM By Anne Prabhakar MD ; [facility] busPIRone HCl 10 MG OR TABS 02/02/2015 - 03/01/2015 Provider: SAIRA PRABHAKAR MD Diagnosis: GENERALIZED ANXI ETY DIS One tablet twice a day Last Documented On 02/10/2023 5:37PM By Anne Prabhakar MD ; [facility] Focalin XR 10 MG OR CP24 02/01/2015 - 03/01/2015 Provider: SAIRA SIEGEL MD Diagnosis: ATTN DEFIC NONHY PERACT 1 Capsule every morning Last Documented On 02/10/2023 5:37PM By Anne Prabhakar MD ; [facility] FLUoxetine HCl 40 MG OR CAPS 02/01/2015 - 03/01/2015 Provider: SAIRA PRABHAKAR MD Diagnosis: MAJOR DEPRESSION DISORDER/RECURRENT 1 capsule daily Last Documented On 02/10/2023 5:37PM By Anne Prabhakar MD ; [facility] busPIRone HCl 10 MG OR TABS 10/26/2014 - 02/01/2015 Provider: SAIRA PRABHAKAR MD Diagnosis: GENERALIZED ANXI ETY DIS Last Documented On 02/10/2023 5:37PM By Anne Prabhakar MD ; [facility] traZODone HCl 50 MG OR TABS 09/28/2014 - 02/01/2015 Provider: SAIRA SIEGEL MD Diagnosis: PERSISTENT INSOM JOCELYN as needed for sleep Last Documented On 02/10/2023 5:37PM By Anne Prabhakar MD ; [facility] busPIRone HCl 10 MG OR TABS 09/07/2014 - 10/26/2014 Provider: SAIRA PRABHAKAR MD Diagnosis: GENERALIZED ANXI ETY DIS Last Documented On 02/10/2023 5:37PM By Anne Prabhakar MD ; [facility] traZODone HCl 50 MG OR TABS 09/07/2014 - 09/28/2014 Provider: SAIRA SIEGEL MD Diagnosis: PERSISTENT INSOM JOCELYN as needed for sleep Last Documented On 02/10/2023 5:37PM By Anne Prabhakar MD ; [facility] FLUoxetine HCl 40 MG OR CAPS 09/07/2014 - 02/01/2015 Provider: SAIRA PRABHAKAR MD Diagnosis: MAJOR DEPRESSION DISORDER/RECURRENT Last Documented On 02/10/2023 5:37PM By Anne Prabhakar MD ; [facility] busPIRone HCl 10 MG OR TABS 08/18/2014 - 09/07/2014 Provider: SAIRA PRABHAKAR MD Diagnosis: GENERALIZED ANXI ETY DIS Last Documented On 02/10/2023 5:37PM By Anne Prabhakar MD ; [facility] busPIRone HCl 10 MG OR TABS 05/05/2014 - 08/18/2014 Provider: SAIRA PRABHAKAR MD Diagnosis: GENERALIZED ANXI ETY DIS Last Documented On 02/10/2023 5:37PM By Anne Prabhakar MD ; [facility] traZODone HCl 50 MG OR TABS 05/05/2014 - 09/07/2014 Provider: SAIRA SIEGEL MD Diagnosis: PERSISTENT INSOM JOCELYN as needed for sleep Last Documented On 02/10/2023 5:37PM By Anne Prabhakar MD ; [facility] FLUoxetine HCl 40 MG OR CAPS 05/05/2014 - 09/07/2014 Provider: SAIRA PRABHAKAR MD Diagnosis: MAJOR DEPRESSION DISORDER/RECURRENT from Dr. Adrian -- has refills Last Documented On 02/10/2023 5:37PM By Anne Prabhakar MD ; [facility] clonazePAM 1 MG OR TABS 04/12/2014 - 05/12/2014 Provider: SAIRA PRABHAKAR MD Diagnosis: GENERALIZED ANXI ETY DIS 1 at bedtime as needed -- gi abdias Dr. Casimiro Adrian Last Documented On 02/10/2023 5:37PM By Anne Prabhakar MD ; [facility] traZODone HCl 50 MG OR TABS 04/10/2014 - 05/05/2014 Provider: SAIRA SIEGEL MD Diagnosis: PERSISTENT INSOM JOCELYN as needed for sleep Last Documented On 02/10/2023 5:37PM By Anne Prabhakar MD ; [facility] busPIRone HCl 10 MG OR TABS 04/10/2014 - 05/05/2014 Provider: SAIRA PRABHAKAR MD Diagnosis: GENERALIZED ANXI ETY DIS Last Documented On 02/10/2023 5:37PM By Anne Prabhakar MD ; [facility] FLUoxetine HCl 40 MG OR CAPS 04/10/2014 - 05/05/2014 Provider: SAIRA PRABHAKAR MD Diagnosis: MAJOR DEPRESSION DISORDER/RECURRENT Last Documented On 02/10/2023 5:37PM By Anne Prabhakar MD ; [facility] FLUoxetine HCl 40 MG OR CAPS 03/30/2014 - 03/30/2014 Judd de luna: Diagnosis: one tablet daily Last Documented On 02/10/2023 5:37PM By LUIZ RUDD ; [facility] FLUoxetine HCl 20 MG OR CAPS 03/30/2014 - 03/30/2014 P rovider: Diagnosis: one tablet daily Last Documented On 02/10/2023 5:37PM By LUIZ RUDD ; [facility] clonazePAM 1 MG OR TABS 03/30/2014 - 03/30/2014 Provid er: Diagnosis: 1 nightly Last Documented On 02/10/2023 5:37PM By LUIZ RUDD ; [facility] Medications Administered Includes: Administered Medications [...] Active Last Documented On 02/10/2023 5:39PM ; [facility] Note: Imported from external source. traZODone HCl Allergy chest pounding a nd severe dizziness 08/09/2015 Active Last Documented On 02/10/2023 5:39PM ; [facility] Note: Imported from external source. Sulfa Antibiotics Allergy 03/30/2014 A ctive Last Documented On 02/10/2023 5:39PM ; [facility] Note: Imported from external source. Strattera Allergy pounding chest 08/09/2015 Acti ve Last Documented On 02/10/2023 5:39PM ; [facility] Note: Imported from external source. Penicillin V Potassium Allergy 03/30/2014 Active Last Documented On 02/10/2023 5:39PM ; [facility] Note: Imported from external source. Focalin Allergy fast heart rate 05/31/2015 Act arnaud Last Documented On 02/10/2023 5:39PM ; [facility] Note: Imported from external source. Clinical Notes Includes: Signed Clinical Notes starting from 11/03/2022 No Clinical Notes Recorded
[2025-01-18] MEDS: ASPIRIN 81 MG CHEWABLE TABLET 324 MG PO (20:21)
[2025-01-18 20:48] LABS: NT Pro B Type Natriuretic Pept 208 pg/mL (19.9-100)
--- NOTE | 2025-01-18 21:25 | ECG_ITS ---
Test Date: 2025-01-18 21:43:00 Measurements Intervals [place] Rate: 55 P: 31 MI: 156 QRS: -31 QRSD: 86 T: -3 QT: 413 QTc: 398 Interpretive Statements SINUS BRADYCARDIA LEFT AXIS DEVIATION LOW QRS VOLTAGE IN PRECORDIAL LEADS VOLTAGE CRITERIA FOR LVH POSSIBLE ANTERIOR MYOCARDIAL INFARCTION , PROBABLY OLD BORDERLINE ST-T WAVE ABNORMALITY- INFERIOR LEADS ABNORMAL ECG Compared to ECG 01/18/2025 18:43:15 HEART RATE HAS DECREASED Electronically Signed On 01-19-2025 08:56:47 CDT by Gavin Mejia D.O.
[2025-01-18 22:08] LABS: Troponin I < 0.012 ng/mL (0.000-0.034)
== END 2025-01-18 22:35 | disposition home or self-care (01) ==
PROVIDERS: Family Medicine; Emergency Provider Physician Assistant; PCP Family Medicine
DX: R07.9 Chest pain, unspecified (principal); J45.909 Unspecified asthma, uncomplicated; M16.11 Unilateral primary osteoarthritis, right hip; E66.9 Obesity, unspecified; Z68.33 Body mass index [BMI] 33.0-33.9, adult; Z86.16 Personal history of COVID-19; R00.1 Bradycardia, unspecified; R94.31 Abnormal electrocardiogram [ECG] [EKG]
CPT/HCPCS: 36415; 71046; 71275; 80053; 83690; 83880; 84484; 85025; 85380; 85610; 85730; 93005; 99284; A9270; Q9967

== ENCOUNTER 2025-04-10 08:12 | Outpatient (CLI) | payer OTHER, SELFPAY ==
[2025-04-10 18:20] LABS: Cholesterol 197 mg/dL (0-200); HDL Direct 55 mg/dL; Triglycerides 132 mg/dL (<150)
[2025-04-10 18:35] LABS: LDL Cholesterol Direct 90 mg/dL
[2025-04-10 18:51] LABS: Creatinine Urine 94.5 mg/dL
[2025-04-10 18:54] LABS: MALB Creatinine Ratio 6.9 mg/g (0-30); Microalbumin Urine Random 6.5 mg/L (0-16.7)
== END 2025-04-10 08:13 | disposition home or self-care (01) ==
LOC: ANHGOSHLAB 08:13
PROVIDERS: PCP Family Medicine; Visit Provider Family Medicine
DX: E11.9 Type 2 diabetes mellitus without complications (principal); R74.01 Elevation of levels of liver transaminase levels; E03.9 Hypothyroidism, unspecified
CPT/HCPCS: 36415; 80061; 82043; 83036; 84443

== ENCOUNTER 2025-06-06 09:20 | Emergency (ER) | payer OTHER, SELFPAY ==
[2025-06-06 10:00] VITALS: BP 121/68; PULSE 71; RESP 16; TEMP 36.6; O2SAT 99
--- NOTE | 2025-06-06 10:10 | ED_ITS ---
HPI - General Adult General Chief complaint: Eye Problems Stated complaint: EYE DRAINAGE/HEADACHE Source: patient Mode of arrival: ambulatory Limitations: no limitations History of Present Illness HPI narrative: Patient presents for evaluation bilateral eye irritation. Symptom onset yesterday. This morning she woke from sleep with her eyes matted shut. She reports itching, burning, blurred vision and thick yellow discharge from the eyes. She wears glasses but does not wear contacts. Related Data Allergies Allergy/AdvReac Type Severity Reaction Status Date / Time Penicillins Allergy Intermediate hives Verified 06/06/25 09:44 Sulfa (Sulfonamide Allergy Intermediate hives Verified 06/06/25 09:44 Antibiotics) Review of Systems Review of Systems: CONSTITUTIONAL: Denies fever, chills, or sweats. EYES: Reports redness to both eyes with thick yellow drainage, itching, burning and blurred vision ENT: Denies rhinorrhea, congestion, sore throat, or otalgia. CARDIOVASCULAR: Denies chest pain, palpitations, or edema. RESPIRATORY: Denies cough or dyspnea. GASTROINTESTINAL: Denies abdominal pain, nausea, vomiting, or diarrhea. GENITOURINARY: Denies dysuria or hematuria. SKIN: Denies rash or itching. MUSCULOSKELETAL: Denies back pain, joint pain, or myalgia. NEUROLOGIC: Denies headache, numbness, dizziness, or weakness. PSYCHIATRIC: Denies anxiety or depression. [facility] Past Medical History Medical History Arthritis of right hip Subjective tinnitus of both ears History of chicken pox History of mumps History of measles Tinnitus COVID-19 Obesity (BMI 30.0-34.9) Unspecified asthma, uncomplicated Surgical History Surgical History History of tonsillectomy (~1970) Family History Family History Father , age 76 Diabetes mellitus Carcinoma of colon Heart disease Cancer Hypertension Thyroid disorder Mother No problems noted. Sibling Kidney disease Sibling Aneurysm Sibling Heart disease Grandparent , age 82 Arthritis Alcoholism Family history of cardiovascular disease Grandparent , age 68 Leukemia Grandparent , age 91 No problems noted. Grandparent , age 71 Heart disease Cerebrovascular accident Cancer Daughter Gestational diabetes Son No problems noted. 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 HEAD: Normocephalic, atraumatic. EYES: PERRLA and EOMI. There is bilateral conjunctival injection with thick yellow drainage to the eyelashes bilaterally. ENT: Nares clear, no rhinorrhea or epistaxis. Mucous membranes moist. Oropharynx without tonsillar hypertrophy exudate or other lesions. Bilateral TMs pearly nevarez nonbulging NECK: Supple. No adenopathy or masses. No carotid bruits or JVD CHEST: Clear to auscultation. No respiratory distress. No wheezes rales or rhonchi HEART: Regular rate and rhythm. No murmur heard. Normal peripheral pulses. ABDOMEN: Soft, nontender, nondistended, normal active bowel sounds. EXTREMITIES: Normal range of motion. No edema. SKIN: Warm, dry, no rash. NEURO: No focal deficits. Alert and oriented x3. PSYCH: Normal mood and affect. Course Course Emergency Course: This is a 64-year-old female who presented for evaluation of bilateral eye irritation. Exam consistent with conjunctivitis. Will treat with erythromycin. OTC claritin may help with itching. Follow up with primary care provider. go to the ER for worsening symptoms. Patient in agreement with plan of care. Level of Care: Express Care Visit Vital Signs Vital signs: Vital Signs Temperature 36.6 C 06/06/25 10:00 Pulse Rate 71 06/06/25 10:00 Respiratory Rate 16 06/06/25 10:00 Blood Pressure 121/68 06/06/25 10:00 Pulse Oximetry 99 06/06/25 10:00 Temperature 36.6 C 06/06/25 10:00 Pulse Rate 71 06/06/25 10:00 Respiratory Rate 16 06/06/25 10:00 Blood Pressure 121/68 06/06/25 10:00 Pulse Oximetry 99 06/06/25 10:00 Medical Decision Making Vital Signs Vital Signs: Vital Signs Temperature 36.6 C 06/06/25 10:00 Pulse Rate 71 06/06/25 10:00 Respiratory Rate 16 06/06/25 10:00 Blood Pressure 121/68 06/06/25 10:00 Pulse Oximetry 99 06/06/25 10:00 Temperature 36.6 C 06/06/25 10:00 Pulse Rate 71 06/06/25 10:00 Respiratory Rate 16 06/06/25 10:00 Blood Pressure 121/68 06/06/25 10:00 Pulse Oximetry 99 06/06/25 10:00 Discharge Plan Discharge Clinical Impression: Conjunctivitis Patient Disposition: Home Condition: Stable Instructions: Antibiotic Form, Conjunctivitis (ED) Patient Language: Turkish Prescriptions: New erythromycin 5 mg/gram (0.5 %) ointment 0.5 inch EACH EYE 6XD Qty: 3.5 0RF No Action albuterol sulfate 90 mcg/actuation HFA aerosol inhaler 2 inh inhalation Q4-6H PRN (Reason: shortness of breath or wheezing) Qty: 8.5 0RF (DME) BreatheRite MDI Spacer Spacer See Rx Instructions .ROUTE .MEDSUPPLY Qty: 1 0RF Rx Instructions: As directed methocarbamol 750 mg tablet 750 mg PO TID PRN (Reason: muscle pain) Qty: 30 0RF fluoxetine 40 mg capsule 40 mg PO DAILY Qty: 90 1RF fluticasone propion-salmeterol [Wixela Inhub] 250-50 mcg/dose blister with device See Rx Instructions .ROUTE .COMPLEX PRN (Reason: wheezing) Qty: 60 1RF Dose Instruction: INHALE ONE PUFF BY MOUTH TWICE A DAY Rx Instructions: INHALE ONE PUFF BY MOUTH TWICE A DAY PRN; fluoxetine [Prozac] 20 mg capsule 20 mg PO DAILY Qty: 90 1RF alprazolam 0.25 mg tablet 0.25 mg PO TID PRN (Reason: anxiety) Qty: 90 3RF levothyroxine 75 mcg tablet See Rx Instructions .ROUTE .COMPLEX Qty: 90 1RF Dose Instruction: TAKE 1 TABLET BY MOUTH EVERY DAY Rx Instructions: TAKE 1 TABLET BY MOUTH EVERY DAY metformin 500 mg tablet extended release 24 hr See Rx Instructions .ROUTE .COMPLEX Qty: 90 1RF Dose Instruction: TAKE ONE TABLET BY MOUTH ONCE DAILY - TAKE WITH THE LARGEST MEAL Rx Instructions: TAKE ONE TABLET BY MOUTH ONCE DAILY - TAKE WITH THE LARGEST MEAL Follow-up/Referrals: Casimiro Adrian MD [Primary Care Provider, Family Practice] Time of Disposition: 10:05
== END 2025-06-06 10:10 | disposition home or self-care (01) ==
PROVIDERS: Emergency Provider Nurse Practitioner; PCP Family Medicine
DX: H10.9 Unspecified conjunctivitis (principal); M16.11 Unilateral primary osteoarthritis, right hip; J45.909 Unspecified asthma, uncomplicated; E66.9 Obesity, unspecified; Z86.16 Personal history of COVID-19
CPT/HCPCS: 99213; G0463

== ENCOUNTER 2025-06-25 10:08 | Outpatient (CLI) | payer OTHER, SELFPAY ==
--- NOTE | 2025-07-24 10:18 | WPDSLEEPSTUD ---
Sleep Study Date of Study: 06/25/25 Ordering Provider: Casimiro Adrian MD Interpreting Physician: Sharon Willingham DO Sleep Study Type: Polysomnogram Height: 1.6 m Weight: 86.183 kg Body Mass Index: 33.6 Neck Circumference (inches): 15 Soledad: 16 Reason for Sleep Study Previously diagnosed sleep apnea and has been on CPAP since 2009. *02/14/2010 showed AHI of 6.7 with desaturation down to 89%. *03/16/2010 showed optimal pressure of 8 cm H2O with a F&P nasal mask Sleep History The patient is a 64-year-old female that had a sleep study ordered her primary care physician. The patient constantly awakens from sleep short of breath. She constantly snores loudly enough that others complain. She frequently has trouble sleeping when she has a cold. She frequently wakes up gasping for air throughout the night. She constantly has breathing problems at night observed by herself or others. She occasionally sweats excessively at night. She rarely has heart palpitations or irregular heartbeats during the night. She frequently falls asleep during the day but never while driving. She denies sleep paralysis and cataplexy. She occasionally has trouble at school or work due to sleepiness. She occasionally experiences vivid dreamlike scenes upon awakening or falling asleep. She denies feeling afraid of going to sleep. She rarely has nightmares. She frequently remembers her dreams. She occasionally has thoughts racing through her mind. She occasionally feels sad or depressed. She frequently has anxiety. She frequently has muscular tension. She rarely notices parts of her body jerk. She rarely kicks during the night. She denies having crawling and aching feelings in her legs. She rarely has leg pain during the night. She occasionally grinds her teeth during sleep and occasionally awakens with morning jaw pain. She is occasionally bothered by pain during the day but rarely awakened by pain during the night. She frequently wakes up feeling stiff in the morning. She occasionally wakes up with sore or achy muscles. She rarely wakes up with pain in the neck, spine and other joints. She goes to bed between 930 to 10:30 p.m. every night. It takes her 30-60 minutes to fall asleep. She wakes up twice throughout the night to urinate and is able to fall back asleep within 5-10 minutes. She wakes up between 5-7 a.m. on weekdays and between 7-9 a.m. on the weekends. She typically gets 8 hours of sleep per night. She does not stay in bed after waking up in the morning. She currently lives with her and adult son. She denies consuming any caffeinated beverages within 2 hours of bedtime. She denies engaging in physical exercise before bedtime. She will read and watch television before falling asleep. She will take naps in the afternoon or the evening and they are refreshing. She consumes 2 caffeinated beverages per day. She denies tobacco, alcohol and recreational drug PMFSH Past Medical History Medical History Arthritis of right hip Subjective tinnitus of both ears History of chicken pox History of mumps History of measles Tinnitus COVID-19 Obesity (BMI 30.0-34.9) Unspecified asthma, uncomplicated Surgical History Surgical History History of tonsillectomy (~1970) Family History Family History Father , age 76 Diabetes mellitus Carcinoma of colon Heart disease Cancer Hypertension Thyroid disorder Mother No problems noted. Sibling Kidney disease Sibling Aneurysm Sibling Heart disease Grandparent , age 82 Arthritis Alcoholism Family history of cardiovascular disease Grandparent , age 68 Leukemia Grandparent , age 91 No problems noted. Grandparent , age 71 Heart disease Cerebrovascular accident Cancer Daughter Gestational diabetes Son No problems noted. 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- [email or web address] Medications Home Medications ?Medication ?Instructions ?Recorded ?Confirmed ?Type fluticasone 250 mcg-salmeterol 50 See Rx Instructions .Route 03/31/24 04/23/25 Rx mcg/dose blistr powdr for .COMPLEX PRN wheezing #60 ea inhalation (Wixela Inhub) fluoxetine 20 mg capsule (Prozac) 20 mg PO DAILY #90 caps 06/30/24 06/06/25 Rx albuterol sulfate 90 mcg/actuation 2 inh inhalation Q4-6H PRN 07/16/24 04/23/25 Rx aerosol inhaler shortness of breath or wheezing #8.5 grams inhalational spacing device #1 ea 07/16/24 04/23/25 Rx (BreatheRite MDI Spacer) methocarbamol 750 mg tablet 750 mg PO TID PRN muscle pain #30 01/30/25 04/23/25 Rx tabs alprazolam 0.25 mg tablet 0.25 mg PO TID PRN anxiety #90 tabs 03/13/25 06/06/25 Rx levothyroxine 75 mcg tablet See Rx Instructions .Route 03/25/25 06/06/25 Rx .COMPLEX #90 tabs metformin 500 mg tablet,extended See Rx Instructions .Route 03/25/25 06/06/25 Rx release 24 hr .COMPLEX #90 tabs erythromycin 5 mg/gram (0.5 %) eye 0.5 inch EACH EYE 6XD #3.5 grams 06/06/25 Rx ointment fluoxetine 40 mg capsule 40 mg PO DAILY #90 caps 06/08/25 Rx tobramycin 0.3 %-dexamethasone 1 drp EACH EYE Q4H #5 mL 06/10/25 Rx 0.05 % eye drops,suspension (Tobradex ST) Sleep Procedure A full night polysomnogram using the [employer] multi-channel system recorded the standard physiologic parameters including EEG, EOG, submentalis EMG, anterior tibialis EMG, EKG, body position, nasal and oral airflow using nasal pressure sensor and thermistor.? Respiratory parameters of chest and abdominal movements were recorded with Respiratory Inductance Plethysmography belts. Oxygen saturation was recorded by pulse oximetry. Video monitoring was also performed. Sleep stages, periodic limb movements, and EEG arousals were scored in 30 second epochs according to the criteria of the AASM Scoring Manual. The Apnea-Hypopnea Index was calculated using [facility] guidelines for definition of hypopnea with 4% O2 desaturations while scoring respiratory events. Sleep Architecture The total recording time was 492.6 minutes.? The total sleep time was 388.5 minutes. Sleep latency was 40.6 minutes. REM latency was 184.5 minutes. Sleep efficiency was 78.9%. The patient had 39 awakenings for an awakening index of 6.0. Wake after sleep onset time was 63.5 minutes. The patient spent 60.5 minutes, 15.6% of total sleep time in Stage N1. The patient spent 281.5 minutes, 72.5% in Stage N2. The patient spent 0.0 minutes, 0.0% in Stage N3. The patient spent 46.5 minutes, 12.0% in Stage REM sleep. Respiratory Analysis The patient had 118 hypopneas and 5 obstructive apneas for an overall Apnea Hypopnea Index of 19.0. The REM Apnea Hypopnea Index was 28.4. The NREM Apnea Hypopnea Index was 18.9. The patient had a Central Apnea Hypopnea Index of 0. There was no evidence of Gabriel-Gerber Respirations. Arousals There were 167 total arousals for an arousal index of 25.8. There were 127 spontaneous arousals for an index of 19.6. There were 32 arousals due to respiratory events for an index of 4.9. There were 1 arousals due to periodic limb movements for an index of 0.2.? There were 7 arousals due to isolated limb movements for an index of 1.1. Periodic Limb Movements The patient had 15 isolated limb movements with an index of 2.3. The patient had 8 periodic limb movements with an index of 1.2. Patient had a total of 23 limb movements with a total limb movement index of 3.6. Oximetry Data The patient had an average oxygen saturation of 92.9% in sleep with a minimum oxygen saturation of 82.0% and a maximum oxygen saturation of 98.0%. The patient had 122 oxygen desaturations that were 4% or greater resulting in an Oxygen Desaturation Index of 18.8.? The patient spent 3.9 minutes, 0.8% of total sleep time with an oxygen saturation below 88%. Snoring Profile Mild to moderate snoring was present throughout the study. Cardiac Profile The EKG showed normal sinus rhythm. No arrhythmias or premature beats were seen. The patient had an average pulse rate of 59.8 bpm with a minimum pulse of rate of 53.0 bpm and a maximum pulse rate of 76.0 bpm.? EEG Profile No signs of seizure activity seen. Assessment and Plan Assessment and Plan (1) PASTORA (obstructive sleep apnea): Code(s): G47.33 - Obstructive sleep apnea (adult) (pediatric) Status: Acute Assessment and Plan: The patient had an overall AHI of 19.0 with desaturation down to 82%. This is consistent with moderate sleep apnea. I recommend that the patient be prescribed AutoPAP 5-15 cm H2O, CPAP mask/filters/tubing and heated humidity. This should be used with all episodes of sleep.? Compliance should be reviewed within 31-90 days of starting therapy for usage greater than 4 hours per night greater than 70% of the nights. The patient should be asked about symptoms such as?excessive daytime sleepiness, quality of sleep, decreased nocturia, increased?mental functioning such as memory, mood, and concentration. Data The data obtained during this sleep study is adequate for interpretation. Certification This sleep study has been reviewed by a board certified sleep medicine physician.
[2025-07-28 09:57] VITALS: BMI 33.6
== END 2025-06-26 06:14 | disposition home or self-care (01) ==
LOC: ANHCSM 10:11
PROVIDERS: PCP Family Medicine; Visit Provider Family Medicine
DX: G47.33 Obstructive sleep apnea (adult) (pediatric) (principal)
CPT/HCPCS: 95810

== ENCOUNTER 2025-08-06 09:39 | Outpatient (CLI) | payer OTHER, SELFPAY ==
--- NOTE | ~2025-08-06 | MM_ITS ---
EXAMINATION: MM screening [facility] BI w silverio HISTORY: Screening TECHNIQUE: Craniocaudal and mediolateral oblique 3-D tomosynthesis images were obtained and synthetic 2-D images were generated. CAD analysis was submitted and interpreted. COMPARISON: Comparison to multiple prior studies sequentially, with oldest reviewed study dated 03/22/2018. BREAST PARENCHYMAL COMPOSITION: Not dense: There are scattered areas of fibroglandular density. FINDINGS: There is no evidence of suspicious mass, calcification, or architectural distortion to suggest malignancy in either breast. There has been no suspicious interval change. IMPRESSION: 1. No mammographic evidence of malignancy. 2. Recommend routine screening mammography in one year. BI-RADS Category 1: Negative Reviewed, dictated and finalized at location O.
== END 2025-08-06 09:40 | disposition home or self-care (01) ==
LOC: ANHFOHIMG 09:42
PROVIDERS: PCP Family Medicine; Visit Provider Family Medicine
DX: Z12.31 Encounter for screening mammogram for malignant neoplasm of breast (principal)
CPT/HCPCS: 77063; 77067

== ENCOUNTER 2025-08-12 16:06 | Outpatient (CLI) | payer OTHER, SELFPAY ==
--- NOTE | ~2025-08-12 | CT_ITS ---
Exam: CT chest without contrast Clinical History: [Solitary pulmonary nodule ] Comparison: [ CTA chest PE protocol January 18, 2025 Technique: Multiple axial CT images of the chest without with IV contrast. Sagittal and coronal reformatted images were obtained. FINDINGS: Lungs and pleura: [ No pneumothorax. No pleural effusion. No free air in the diaphragm. New 2.6 x 2.0 cm irregular consolidation in the lingula. The previously described 7 mm left basilar pulmonary nodule is no longer identified. There are few small patchy and groundglass opacities in the lingula and lower lobes.] Mediastinum and pulmonary frankie: [ No mass or adenopathy.] Axillary/intramammary and supraclavicular: [ No mass or adenopathy.] Heart and great vessels: [ Heart is mildly enlarged.[ [ No pericardial effusion.] [ No aneurysm.] Chest Wall: [ Unremarkable.] Upper Abdomen: 5 mm nonobstructing calcification in the right kidney. Indeterminant 1.1 cm low-density lesion in the right lobe of the liver. A liver mass CT or MRI is recommended. Osseous structures: [ No acute fracture or destructive lesion.] [ Multilevel degenerative change in the visualized spine.] Additional findings: [ None of significance.] IMPRESSION: 1. New 2.6 x 2.0 cm irregular consolidation in the lingula. Differential includes inflammatory/infectious process or a malignant process. A PET/CT and/or biopsy is recommended. 2. The previously described 7 mm left basilar pulmonary nodule is no longer identified. 3. There are few small patchy and groundglass opacities in the lingula and lower lobes.] Differential includes but is not limited to atelectasis and/or inflammatory/infectious process. 4. Indeterminant 1.1 cm low-density lesion in the right lobe of the liver. A liver mass CT or MRI is recommended. Reviewed, dictated and finalized at location Q. IMPRESSION: 1. New 2.6 x 2.0 cm irregular consolidation in the lingula. Differential includ es inflammatory/infectious process or a malignant process. A PET/CT and/or biop sy is recommended. 2. The previously described 7 mm left basilar pulmonary nodule is no longer kimmie ntified. 3. There are few small patchy and groundglass opacities in the lingula and lowe r lobes.] Differential includes but is not limited to atelectasis and/or inflam matory/infectious process. 4. Indeterminant 1.1 cm low-density lesion in the right lobe of the liver. A li rina mass CT or MRI is recommended.
== END 2025-08-12 16:07 | disposition home or self-care (01) ==
PROVIDERS: PCP Family Medicine; Visit Provider Nurse Practitioner Family
DX: R91.1 Solitary pulmonary nodule (principal)
CPT/HCPCS: 71250

== ENCOUNTER 2025-08-27 07:41 | Outpatient (CLI) | payer OTHER, SELFPAY ==
--- NOTE | ~2025-08-27 | CT_ITS ---
EXAM/PROCEDURE: CT chest abdomen pelvis w con HISTORY: J18.1 - Lobar pneumonia, unspecified organism COMPARISON: August 12, 2025 TECHNIQUE: Contrast-enhanced chest CT FINDINGS: Mild spiculated nodular appearing changes are present in the lingular area were previously described round consolidation and/or atelectasis was present. No new nodules or masses. Heart and great vessels within normal limits with no aortic aneurysm dissection or large pulmonary emboli. No bulky lymphadenopathy. Central and large airways are patent. No acute or aggressive bony or soft tissue process seen. Small low density lesions in the liver statistically most likely represent cysts. IMPRESSION: Significantly improved appearance of the lingular region with no discrete mass; findings consistent with resolving round pneumonia. There is mild persisting spiculated nodularity and follow-up chest CT in 8-12 weeks recommended to confirm resolution. Reviewed, dictated and finalized at location A. [facility] IMPRESSION: Significantly improved appearance of the lingular region with no discrete mass; findings consistent with resolving round pneumonia. There is mild persisting spiculated nodularity and follow-up chest CT in 8-12 weeks recommended to confi rm resolution.
[2025-08-27 07:58] LABS: Estimated Glomerular Filt Rate 56
== END 2025-08-27 07:42 | disposition home or self-care (01) ==
PROVIDERS: PCP Family Medicine; Visit Provider Nurse Practitioner Family
DX: J18.1 Lobar pneumonia, unspecified organism (principal); R16.0 Hepatomegaly, not elsewhere classified
CPT/HCPCS: 71260; 74177; Q9967

== ENCOUNTER 2025-08-31 01:29 | Day surgery (SDC) | payer MEDICARE, OTHER, SELFPAY ==
[2025-08-18 09:16] VITALS: BMI 33.6
[2025-08-31 07:42] VITALS: BP 114/67; PULSE 80; RESP 16; TEMP 36.4; O2SAT 96
[2025-08-31] MEDS: LACTATED RINGERS 1,000 ML 150 ML IV CONT (07:53)
--- NOTE | 2025-08-31 08:44 | P.HP_ITS ---
H&P: HPI History of Present Illness Date/Time: 08/31/25 08:44 Chief Complaint: family history of colon cancer Narrative: this is a 65-year-old woman who presents for colonoscopy. She has a family history of colon cancer in a parent. She last had a colonoscopy 6 years ago. She denies any hematochezia or melena. Review of Systems Review of Systems: All systems reviewed & are unremarkable except as noted in HPI and below Constitutional: Constitutional: Denies chills, Denies fever(s), Denies headache(s) and Denies weight loss Eyes: Eyes: Denies change in vision ENT: Denies dizziness, Denies headache(s), Denies neck mass and Denies throat swelling Cardiovascular: Cardiovascular: Denies chest pain, Denies lightheadedness and Denies dyspnea Respiratory: Respiratory: Denies cough, Denies dyspnea and Denies wheezing Gastrointestinal: Gastrointestinal: Denies abdominal pain, Denies change in bowel habits, Denies nausea and Denies vomiting Genitourinary: Genitourinary: Denies hematuria and Denies dysuria Musculoskeletal: Musculoskeletal: Reports as per HPI Integumentary/Breasts: Skin/Breast: Reports as per HPI Neurologic: Denies dizziness and Denies headache(s) Allergic/Immunologic: Allergic/Immunologic: Denies throat swelling and Denies wheezing PMF Past Medical History Medical History (Updated 08/31/25 @ 08:45 by Shola Veras DO) Hypothyroidism (acquired) Diabetes Anxiety Prediabetes Other bipolar disorder Obstructive sleep apnea (adult) (pediatric) Arthritis of right hip Subjective tinnitus of both ears History of chicken pox History of mumps History of measles Tinnitus COVID-19 Obesity (BMI 30.0-34.9) Unspecified asthma, uncomplicated Surgical History Surgical History History of tonsillectomy (~1970) Family History Family History Father , age 76 Diabetes mellitus Carcinoma of colon Heart disease Cancer Hypertension Thyroid disorder Mother No problems noted. Sibling Kidney disease Sibling Aneurysm Sibling Heart disease Grandparent , age 82 Arthritis Alcoholism Family history of cardiovascular disease Grandparent , age 68 Leukemia Grandparent , age 91 No problems noted. Grandparent , age 71 Heart disease Cerebrovascular accident Cancer Daughter Gestational diabetes Son No problems noted. 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- [employer] Spiritual care concerns: No Meds Home Medications and Allergies Home Medications ?Medication ?Instructions ?Recorded ?Confirmed ?Type fluticasone 250 mcg-salmeterol 50 See Rx Instructions .Route 03/31/24 08/18/25 Rx mcg/dose blistr powdr for .COMPLEX PRN wheezing #60 ea inhalation (Wixela Inhub) albuterol sulfate 90 mcg/actuation 2 inh inhalation Q4 -6H PRN 07/16/24 08/18/25 Rx aerosol inhaler shortness of breath or wheez ing #8.5 grams inhalational spacing device #1 ea 07/16/24 08/18/25 Rx (BreatheRite MDI Spacer) alprazolam 0.25 mg tablet 0.25 mg PO TID PRN anxiety # 90 tabs 03/13/25 08/31/25 Rx levothyroxine 75 mcg tablet See Rx Instructions .Route 03/25/25 08/31/25 Rx .COMPLEX #90 tabs metformin 500 mg tablet,extended See Rx Instructions . Route 03/25/25 08/31/25 Rx release 24 hr .COMPLEX #90 tabs fluoxetine 40 mg capsule 40 mg PO DAILY #90 caps 05/1608/31/25 Rx Resmed Auto PAP #1 ea 07/28/25 08/18/25 Rx Allergies Allergy/AdvReac Type Severity Reaction Status Date / Time Penicillins Allergy Intermediate hives Verified 08/31/25 07:40 Sulfa (Sulfonamide Allergy Intermediate hives Verified 08/31/25 07:40 Antibiotics) Vital Signs Vital Signs - 24 hr 08/31/25 07:42 Temperature 97.5 F L Pulse Rate 80 Respiratory Rate 16 Blood Pressure 114/67 Pulse Oximetry 96 Oxygen Delivery Room Air Exam Const: General: no acute distress and alert Orientation/consciousness: patient oriented x3 HENMT: Head: normocephalic and atraumatic Ears: hearing grossly normal bilaterally Face/Nose/Sinus: Normal nares present Mouth: Yes Normal oral and palatal mucosa present Eyes: Periorbital: periorbital findings normal Sclera: sclerae normal EOM: EOMs intact bilaterally Neck: Neck: normal visual inspection, no lymphadenopathy and trachea midline Chest: Chest palpation & inspection: normal inspection of the chest Resp: Effort & Inspection: normal respiratory effort Auscultation: clear to auscultation bilaterally Cardio: Jugular venous distension: no JVD Rate: regular rate Rhythm: regular rhythm Heart sounds: S1 normal heart sound present and S2 normal heart sound present Peripheral pulses: Peripheral pulses 2+ throughout GI: Inspection: normal to inspection GI Palp: Yes Soft to palpation, No Tenderness to palpation present (GI), No Guarding due to palpation present (GI) and No Rebound tenderness present Percussion: Yes normal to percussion Auscultation: normal bowel sounds : General: Yes no CVA tenderness Back/Spine/Pelvis: Back: no CVA tenderness Neuro: General: patient oriented x3, no focal motor deficits and CN's II-XI intact bilaterally Cognition (Neuro): normal cognition Speech: normal spee ch Motor exam (neuro): 5/5 motor strength present throughout Extrem: General: capillary refill normal and no clubbing, cyanosis or edema Assessment and Plan Assessment and plan (1) Family hx of colon cancer: Code(s): Z80.0 - Family history of malignant neoplasm of digestive organs Status: Acute Assessment and Plan: I have recommended colonoscopy. I have discussed the procedure, risks, benefits, and alternatives. Questions were answered. Patient is agreeable to proceed.
[2025-08-31 09:08] VITALS: BP 120/65; PULSE 57; RESP 16; O2SAT 99
[2025-08-31 09:18] VITALS: BP 105/65; PULSE 53; RESP 16; O2SAT 100
[2025-08-31 09:26] VITALS: BP 118/66; PULSE 53; RESP 16; O2SAT 100
--- NOTE | 2025-08-31 09:37 | WPDANESEPPF ---
Anes - Initial Pre Proc Eval Procedure: Operation Date: 08/31/25 09:00 Proposed Procedures p Screening Colonoscopy - Shola Veras DO Date/Time: 08/31/25 09:37 Surgeon: Shola Veras DO Pre Op Diagnosis: Neoplasm screening Patient Data Age: 65 Gender: F Height: 1.6 m Weight: 81.1 kg Last Vital Signs Temp 36.4 C L 08/31/25 07:42 Pulse 53 L 08/31/25 09:26 Resp 16 08/31/25 09:26 BP 118/66 08/31/25 09:26 Pulse Ox 100 08/31/25 09:26 O2 Del Method Room Air 08/31/25 09:26 Allergies Allergy/AdvReac Type Severity Reaction Status Date / Time Penicillins Allergy Intermediate hives Verified 08/31/25 07:40 Sulfa (Sulfonamide Allergy Intermediate hives Verified 08/31/25 07:40 Antibiotics) Home Medications ?Medication ?Instructions ?Recorded ?Confirmed ?Type fluticasone 250 mcg-salmeterol 50 See Rx Instructions .Route 03/31/24 08/18/25 Rx mcg/dose blistr powdr for .COMPLEX PRN wheezing #60 ea inhalation ([facility] Inhub) albuterol sulfate 90 mcg/actuation 2 inh inhalation Q4-6H PRN 07/16/24 08/18/25 Rx aerosol inhaler shortness of breath or wheezing #8.5 grams inhalational spacing device #1 ea 07/16/24 08/18/25 Rx ([facility] MDI Spacer) alprazolam 0.25 mg tablet 0.25 mg PO TID PRN anxiety #90 tabs 03/13/25 08/31/25 Rx levothyroxine 75 mcg tablet See Rx Instructions .Route 03/25/25 08/31/25 Rx .COMPLEX #90 tabs metformin 500 mg tablet,extended See Rx Instructions .Route 03/25/25 08/31/25 Rx release 24 hr .COMPLEX #90 tabs fluoxetine 40 mg capsule 40 mg PO DAILY #90 caps 06/08/25 08/31/25 Rx Resmed Auto PAP #1 ea 07/28/25 08/18/25 Rx Laboratory Tests 08/31/25 07:52 POC Capillary Glucose 134 H mg/dl (65-105) Patient hx anesthesia problems: none Family hx anesthesia problems: none Results Review: All pre-operative results and documents have been reviewed as part of the pre-operative evaluation. [facility] Past Medical History Medical History (Updated 08/31/25 @ 08:45 by Shola Veras DO) Hypothyroidism (acquired) Diabetes Anxiety Prediabetes Other bipolar disorder Obstructive sleep apnea (adult) (pediatric) Arthritis of right hip Subjective tinnitus of both ears History of chicken pox History of mumps History of measles Tinnitus COVID-19 Obesity (BMI 30.0-34.9) Unspecified asthma, uncomplicated Surgical History Surgical History History of tonsillectomy (~1970) Family History Family History Father , age 76 Diabetes mellitus Carcinoma of colon Heart disease Cancer Hypertension Thyroid disorder Mother No problems noted. Sibling Kidney disease Sibling Aneurysm Sibling Heart disease Grandparent , age 82 Arthritis Alcoholism Family history of cardiovascular disease Grandparent , age 68 Leukemia Grandparent , age 91 No problems noted. Grandparent , age 71 Heart disease Cerebrovascular accident Cancer Daughter Gestational diabetes Son No problems noted. 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 Informed Consent: The patient's anesthetic plan and its attendant risks and benefits were discussed with the patient/family/POA. Questions were solicited and answers provided to the satisfaction of the patient/family/POA.
== END 2025-08-31 09:36 | disposition home or self-care (01) ==
PROVIDERS: PCP Family Medicine; Visit Provider Surgery
PROC: 0DJD8ZZ Inspection of Lower Intestinal Tract, Via Natural or Artificial Opening Endoscopic (ICD-10-PCS; CPT 45378; principal; 2025-08-31 09:00)
DX: Z12.11 Encounter for screening for malignant neoplasm of colon (principal); Z80.0 Family history of malignant neoplasm of digestive organs; K57.30 Diverticulosis of large intestine without perforation or abscess without bleeding; E03.9 Hypothyroidism, unspecified; E11.9 Type 2 diabetes mellitus without complications; G47.33 Obstructive sleep apnea (adult) (pediatric)
CPT/HCPCS: G0105; 82948; J2704; J7120